=== PATIENT | female | born 1930 | race Caucasian/White ===

== ENCOUNTER 2016-11-23 16:01 | Inpatient (IN) | payer OTHER ==
[~2016-11-23] VITALS: Ht 160 cm; Wt 60.1 kg
[~2016-11-23 16:01] MED LIST: ALBUAER19 INH; ASPI81TA28 PO; ATV/1 PO; CITA10TA4 PO; LOSA1TAB38 PO; METO100T14 PO; ONDA4TAB4 PO; POTA20TA16 PO; PRLSR20 PO
[2016-11-23] MEDS ORDERED: SODIUM CHLORIDE 0.9% 1000ML 1,000 ML IV STA (16:19)
--- NOTE | 2016-11-23 16:24 | EMERGENCY ROOM VISIT NOTE ---
History Report prepared by Neva: Ivet Cespedes Under the Supervision of: Dr. Mynor Clinton M.D. First contact with patient: 16:13 Chief Complaint: ALTERED MENTAL STATUS Stated Complaint: TEST History of Present Illness The patient is an 86 year old female who presents to the Emergency Room with worsening altered mental status staring 0300 today. The patient was sent to the ED from her PCP's office. Her daughter's note that the patient has been having auditory and visual hallucinations. She has been seeing relatives and speaking with them. She is also hearing voices. The patient denies any abdominal pain or pain elsewhere. She is on baby aspirin. The history is limited due to the patient's AMS. Source of History: patient, family History Limited By: AMS Onset: 299 Position: other (global) Quality: other (altered mental status) Timing: worsening Associated Symptoms: No abdominal pain Note: Pt has auditory and visual hallucinations. Review of Systems See HPI for pertinent positives & negatives. A total of 10 systems reviewed and were otherwise negative. Past Medical & Surgical Medical Problems: (1) Atrial fibrillation with RVR (2) Heart disease (3) Hypertension (4) Hypertensive urgency (5) Metabolic encephalopathy (6) Psychosis (7) UTI (urinary tract infection) Surgical Problems: (1) H/O bilateral oophorectomy (2) H/O: hysterectomy Family History FHx: heart disease FHx: lung disease Hypertension Social History Smoking Status: Never Smoker Alcohol Use: none Marital Status: Housing Status: lives with family Occupation Status: retired Current/Historical Medications Scheduled Aspirin (Aspirin Ec), 81 MG PO DAILY Cholecalciferol (Vitamin D3), 1,000 INTER.UNIT PO DAILY Citalopram Hydrobromide (Citalopram Hydrobromide), 10 MG PO DAILY Cyanocobalamin (Vitamin B-12), 1,000 MCG PO DAILY Levothyroxine Sodium (Synthroid), 50 MCG PO DAILY Losartan Potassium (Cozaar), 50 MG PO DAILY Metoprolol Tartrate (Lopressor) (Lopressor), 50 MG PO BID Omeprazole (Prilosec), 20 MG PO DAILY Polyethylene Glycol 3350 (Miralax), 17 GM PO DAILY Risperidone (Risperdal), 0.25 MG PO DIRECTED Scheduled PRN Albuterol Inhaler (Ventolin Inhaler), 2 PUFFS INH QID PRN for SOB/Wheezing Lorazepam (Ativan), 1 MG PO TID PRN for Anxiety Allergies Coded Allergies: Sulfamethoxazole w/Trimethoprim (Unverified Allergy, Mild, HIVES, 11/23/16) Hydrochlorothiazide (Unverified Allergy, Unknown, UNKNOWN, 11/23/16) Lisinopril (Verified Allergy, Unknown, UNKNOWN RXN, 11/23/16) Verapamil (Verified Allergy, Unknown, UNKNOWN RXN, 11/23/16) Physical Exam Vital Signs Date Time Temp Pulse Resp B/P (MAP) Pulse Ox O2 Delivery O2 Flow Rate FiO2 11/23/16 17:34 62 171/92 73 173/98 80 174/95 11/23/16 17:05 95 Room Air 11/23/16 16:57 72 11/23/16 16:50 95 Room Air 11/23/16 16:08 36.5 81 20 157/77 96 Room Air Physical Exam GENERAL: Patient is a healthy-appearing well-nourished female HEAD: Normocephalic atraumatic EYES: Ocular movements intact pupils equal and react to light OROPHARYNX mucous membranes are moist no exudates present no erythema or edema present NECK: Supple no nuchal rigidity CHEST: Good equal expansion LUNGS: Clear and equal to auscultation CARDIAC: Normal S1 and S2 ABDOMEN: Soft nontender no guarding BACK: No CVA tenderness EXTREMITIES: No pain upon palpation normal muscle strength in all groups no clubbing cyanosis or edema NEURO: Patient is inappropriate to questions. Oriented to the date, but does not know the day of the week. Cranial Nerves 2-12 grossly intact Medical Decision & Procedures ER Provider Diagnostic Interpretation: X-ray results as stated below per interpretation by me and the radiologist. Radiology results as stated below per my review and radiologist interpretation: CHEST ONE VIEW PORTABLE CLINICAL HISTORY: Preoperative chest. Weakness. COMPARISON STUDY: 03/05/2015 FINDINGS: The heart remains enlarged. There is aortic tortuosity/ectasia. There is a left subclavian dual-chamber central venous pacemaker. There is no failure. There is no focal pulmonary consolidation.[ No pleural effusions are visualized. IMPRESSION: Persistent cardiomegaly and aortic tortuosity/ectasia. No acute findings. Electronically signed by: Naldo Carter M.D. 11/23/2016 4:48 PM Dictated Date/Time: 11/23/2016 4:[address] HEAD WITHOUT CONTRAST (CT) CLINICAL HISTORY: Acute change in mental status COMPARISON STUDY: 08/21/2015 TECHNIQUE: Axial CT of the brain is performed from the vertex to the skull base. IV contrast was not administered for this examination. A dose lowering technique was utilized adhering to the principles of ALARA. CT DOSE: 638.56 mGycm FINDINGS: No intra or extra-axial mass lesions are visualized. There is no CT evidence of acute cortical infarction. There is no evidence of midline shift. There is no acute hemorrhage. No calvarial fractures are visualized. There are moderate white matter hypodensities likely on a small vessel basis. 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 There is no evidence of acute sinusitis IMPRESSION: No acute intracranial findings Electronically signed by: Naldo Carter M.D. 11/23/2016 5:22 PM Dictated Date/Time: 11/23/2016 5:20 PM Laboratory Results 11/23/16 16:57 Red Blood Count 3.89, Mean Corpuscular Volume 96.7, Mean Corpuscular Hemoglobin 33.2, Mean Corpuscular Hemoglobin Concent 34.3, Mean Platelet Volume 10.4, Neutrophils (%) (Auto) 46.3, Lymphocytes (%) (Auto) 39.2, Monocytes (%) (Auto) 11.9, Eosinophils (%) (Auto) 1.1, Basophils (%) (Auto) 1.3, Neutrophils # (Auto ) 2.83, Lymphocytes # (Auto) 2.40, Monocytes # (Auto) 0.73, Eosinophils # (Auto ) 0.07, Basophils # (Auto) 0.08 11/23/16 16:57 Test 11/23/16 16:56 11/23/16 16:57 Bedside Glucose 86 mg/dl (70-90) White Blood Count 6.12 K/uL (4.8-10.8) Red Blood Count 3.89 M/uL (4.2-5.4) Hemoglobin 12.9 g/dL (12.0-16.0) Hematocrit 37.6 % (37-47) Mean Corpuscular Volume 96.7 fL (80-100) Mean Corpuscular Hemoglobin 33.2 pg (25-34) Mean Corpuscular Hemoglobin Concent 34.3 g/dl (32-36) Platelet Count 163 K/uL (130-400) Mean Platelet Volume 10.4 fL (7.4-10.4) Neutrophils (%) (Auto) 46.3 % Lymphocytes (%) (Auto) 39.2 % Monocytes (%) (Auto) 11.9 % Eosinophils (%) (Auto) 1.1 % Basophils (%) (Auto) 1.3 % Neutrophils # (Auto) 2.83 K/uL (1.4-6.5) Lymphocytes # (Auto) 2.40 K/uL (1.2-3.4) Monocytes # (Auto) 0.73 K/uL (0.11-0.59) Eosinophils # (Auto) 0.07 K/uL (0-0.5) Basophils # (Auto) 0.08 K/uL (0-0.2) RDW Standard Deviation 46.2 fL (36.4-46.3) RDW Coefficient of Variation 13.2 % (11.5-14.5) Immature Granulocyte % (Auto) 0.2 % Immature Granulocyte # (Auto) 0.01 K/uL (0.00-0.02) Urine Color YELLOW Urine Appearance CLEAR (CLEAR) Urine pH 5.5 (4.5-7.5) Urine Specific [place] 1.021 (1.000-1.030) Urine Protein NEG (NEG) Urine Glucose (UA) NEG (NEG) Urine Ketones NEG (NEG) Urine Occult Blood NEG (NEG) Urine Nitrite NEG (NEG) Urine Bilirubin NEG (NEG) Urine Urobilinogen NEG (NEG) Urine Leukocyte Esterase MODERATE (NEG) Urine WBC (Auto) 10-30 /hpf (0-5) Urine RBC (Auto) 0-4 /hpf (0-4) Urine Hyaline Casts (Auto) 1-5 /lpf (0-5) Urine Epithelial Cells (Auto) >30 /lpf (0-5) Urine Bacteria (Auto) NEG (NEG) Anion Gap 9.0 mmol/L (3-11) Est Creatinine Clear Calc Drug Dose 27.3 ml/min Estimated GFR () 47.1 Estimated GFR (Non- 40.6 BUN/Creatinine Ratio 19.2 (10-20) Calcium Level 9.3 mg/dl (8.5-10.1) Total Bilirubin 0.5 mg/dl (0.2-1) Direct Bilirubin mg/dl (0-0.2) Aspartate Amino Transf (AST/SGOT) 32 U/L (15-37) Alanine Aminotransferase (ALT/SGPT) 19 U/L (12-78) Alkaline Phosphatase 57 U/L (45-117) Total Creatine Kinase 193 U/L (26-192) Creatine Kinase MB 2.9 ng/ml (0.5-3.6) Creatine Kinase MB Ratio 1.5 (0-3.0) Troponin I < 0.015 ng/ml (0-0.045) Total Protein 7.9 gm/dl (6.4-8.2) Albumin 4.2 gm/dl (3.4-5.0) Thyroid Stimulating Hormone (TSH) 1.080 uIu/ml (0.300-4.500) Chemistry Specimen Hemolysis Labs reviewed by ED physician. Medications Administered Medications (Trade) Dose Ordered Sig/Kevin Route Start Time Stop Time Status Last Admin Dose Admin Sodium Chloride 1,000 ml @ 999 mls/hr Q1H1M STAT IV 11/23/16 16:19 11/23/16 17:19 DC 11/23/16 17:34 999 MLS/HR Ceftriaxone Sodium (Rocephin Inj) 1 gm NOW STAT IV 11/23/16 17:46 11/23/16 17:47 DC 11/23/16 19:03 1 GM ECG Indication: altered mental status Rate (beats per minute): 67 Rhythm: other (paced) Findings: no acute ischemic change, no ectopy ED Course 1615: Past medical records reviewed. The patient was evaluated in room A4B. A complete history and physical examination was performed. 1619: NSS 1000 ml @ 999 mls/hr IV. 1746: Rocephin Inj 1 gm IV. 1800: Upon reexamination the patient is stable. I discussed results and treatment plan with the patient's family. They verbalize agreement and understanding. The patient will be evaluated for further management. 1805: I discussed the patient's case with Dr. Goldstein, [facility] hospitalist, he has agreed to evaluate the patient for further management and care. Medical Decision Differential diagnosis: Etiologies such as metabolic, infection, hypo/hyperglycemia, electrolyte abnormalities, cardiac sources, intracerebral event, toxicologic, neurologic, as well as others were entertained. This is an 86-year-old female who presents to the emergency department complaining of altered mental status. The patient is seeing objects at home as well as people that are not there. Upon arrival to emergency department the patient appears confused and does not over she has no other day. An IV was established the patient was given Rocephin for urinary tract infection as well as normal saline bolus. She has a normal CAT scan of the head as well as chest x-ray. I did discuss the case with the hospitalist service who agreed to admit the patient. Patient was in agreement with treatment plan. Medication Reconcilliation Current Medication List: was personally reviewed by me Blood Pressure Screening Patient's blood pressure: Elevated blood pressure Blood pressure disposition: Referred to PCP Consults Time Called: 1801 Consulting Physician: Dr. Goldstein [facility] hospitalist Returned Call: [phone] I discussed the patient's case with him. He has agreed to evaluate the patient for further management and care. Impression Primary Impression: Altered mental status Additional Impression: Urinary tract infection Scribe Attestation The scribe's documentation has been prepared under my direction and personally reviewed by me in its entirety. I confirm that the note above accurately reflects all work, treatment, procedures, and medical decision making performed by me. Departure Information Dispostion Being Evaluated By Hospitalist Referrals Devante Gant D.O. (PCP) Patient Instructions My [facility] Problem Qualifiers Primary Impression: Altered mental status Altered mental status type: unspecified Qualified Codes: R41.82 - Altered mental status, unspecified Additional Impression: Urinary tract infection Urinary tract infection type: acute cystitis Hematuria presence: without hematuria Qualified Codes: N30.00 - Acute cystitis without hematuria
--- NOTE | 2016-11-23 16:50 | DIAGNOSTIC IMAGING REPORT ---
CHEST ONE VIEW PORTABLE CLINICAL HISTORY: Preoperative chest. Weakness. COMPARISON STUDY: 03/05/2015 FINDINGS: The heart remains enlarged. There is aortic tortuosity/ectasia. There is a left subclavian dual-chamber central venous pacemaker. There is no failure. There is no focal pulmonary consolidation.[ No pleural effusions are visualized. IMPRESSION: Persistent cardiomegaly and aortic tortuosity/ectasia. No acute findings. Electronically signed by: Naldo Carter M.D. 11/23/2016 4:48 PM Dictated Date/Time: 11/23/2016 4:48 PM
[2016-11-23 17:18] LABS: URINE APPEARANCE CLEAR (CLEAR); URINE BILIRUBIN NEG (NEG); URINE COLOR YELLOW; URINE EPITHELIAL CELL AUTO >30 /lpf (0-5); URINE NITRITE NEG (NEG); URINE PH 5.5 (4.5-7.5); URINE SPECIFIC GRAVITY 1.021 (1.000-1.030); UROBILINOGEN NEG (NEG)
--- NOTE | 2016-11-23 17:23 | DIAGNOSTIC IMAGING REPORT ---
CT HEAD WITHOUT CONTRAST (CT) CLINICAL HISTORY: Acute change in mental status COMPARISON STUDY: 08/21/2015 TECHNIQUE: Axial CT of the brain is performed from the vertex to the skull base. IV contrast was not administered for this examination. A dose lowering technique was utilized adhering to the principles of ALARA. CT DOSE: 638.56 mGycm FINDINGS: No intra or extra-axial mass lesions are visualized. There is no CT evidence of acute cortical infarction. There is no evidence of midline shift. There is no acute hemorrhage. No calvarial fractures are visualized. There are moderate white matter hypodensities likely on a small vessel basis. 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 There is no evidence of acute sinusitis IMPRESSION: No acute intracranial findings Electronically signed by: Naldo Carter M.D. 11/23/2016 5:22 PM Dictated Date/Time: 11/23/2016 5:20 PM
[2016-11-23 17:26] LABS: BASO % 1.3 %; BASO ABS # 0.08 K/uL (0-0.2); COMPLETE YES; EOS % 1.1 %; HEMATOCRIT 37.6 % (37-47); IG% 0.2 %; LYMPH % 39.2 %; MEAN CELL VOLUME 96.7 fL (80-100); MEAN CORPUSCULAR HEMOGLOBIN 33.2 pg (25-34); MEAN CORPUSCULAR HGB CONC 34.3 g/dl (32-36); MEAN PLATELET VOLUME 10.4 fL (7.4-10.4); MONO % 11.9 %; NEUT % 46.3 %; PLATELET COUNT 163 K/uL (130-400); RED BLOOD COUNT 3.89 M/uL (4.2-5.4); WHITE BLOOD COUNT 6.12 K/uL (4.8-10.8)
[2016-11-23 17:41] LABS: MANUAL MICROSCOPIC REQUIRED? NO; REVIEW REQ? NO
[2016-11-23] MEDS ORDERED: CEFTRIAXONE SOD INJ 1 GM ADDVIAL IV STA (17:46)
[2016-11-23 18:00] LABS: ALKALINE PHOSPHATASE 57 U/L (45-117); ALT/SGPT 19 U/L (12-78); AST/SGOT 32 U/L (15-37); BLOOD UREA NITROGEN 23 mg/dl (7-18); BUN/CREATININE RATIO 19.2 (10-20); CALCIUM 9.3 mg/dl (8.5-10.1); CARBON DIOXIDE 26 mmol/L (21-32); CHLORIDE 102 mmol/L (98-107); CKMB/CK RATIO 1.5 (0-3.0); GLUCOSE 89 mg/dl (70-99); POTASSIUM 3.7 mmol/L (3.5-5.1); SODIUM 137 mmol/L (136-145)
[2016-11-23] MEDS ORDERED: ACETAMINOPHEN 325 MG TAB PO PRN (18:45)
[2016-11-23] MEDS ORDERED: ONDANSETRON INJ 2 MG/ML 2 ML VIAL IV PRN (18:45)
[2016-11-23] MEDS ORDERED: ALBUTEROL HFA 8 GM INHALER INH PRN (18:45)
[2016-11-23] MEDS ORDERED: SYN50 PO (19:11)
[2016-11-23] MEDS ORDERED: CYAN10005 PO (19:11)
[2016-11-23] MEDS ORDERED: CHOL1000 PO (19:11)
[2016-11-23] MEDS ORDERED: POLY335019 PO (19:11)
[2016-11-23] MEDS ORDERED: RISP0.258 PO (19:11)
[2016-11-23 20:32] VITALS: BP_SYST 204; BP_SYST 226; BP_DIAS 108; BP_DIAS 116; PULSE 90; TEMP 36.4; O2SAT 90
[2016-11-23 20:33] VITALS: BP 204/108; PULSE 90; TEMP 36.4; Ht 160 cm; Wt 60.1 kg
--- NOTE | 2016-11-23 20:38 | HISTORY & PHYSICAL EXAMINATION ---
DATE OF ADMISSION: 11/23/2016 PRIMARY CARE PHYSICIAN: Dr. Gant. CHIEF COMPLAINT: Acute confusion with hallucinations since this morning. HISTORY OF PRESENT COMPLAINT: The history was taken from the patient's daughter. The patient is very hard of hearing. The patient woke up early in the morning around quarter to 3 with acute hallucinations. She was hearing strange voices and also she was seeing the people that she has not seen before. The condition continued throughout the whole day and at the end of the day, the daughter brought the patient to the Emergency Room for further evaluation. She has not had these kind of symptoms before. She has not had any new medications for her medical condition and she denies to any recent fever or any chills, or rigors, recent injury. She did not have any numbness or tingling, any problem with speech and vision or any weakness involving any side of the body associated with these symptoms. In the Emergency Room, she was noted to have a very high blood pressure with a systolic blood pressure 174 and diastolic 98. She was afebrile. Her blood counts were fairly unremarkable except the urine examination was suggestive of infection. From that point, she was advised admission to the medical floor. PAST MEDICAL HISTORY: Significant for atrial fibrillation status post cardiac pacemaker, chronic kidney disease stage III, allergic rhinitis, hypertension, hyperlipidemia, history of tachybrady syndrome, anxiety, and hypothyroidism. PAST SURGICAL HISTORY: Significant for chest tube insertion in the past and pacemaker placement, total abdominal hysterectomy with oophorectomy. FAMILY HISTORY: Significant for father had unknown type of cancer. SOCIAL HISTORY: She is a . She lives with her daughter. She does not smoke and she does not drink and she has been reasonably ambulant. ALLERGIES: SHE IS ALLERGIC TO LISINOPRIL, SULFAMETHOXAZOLE AND VERAPAMIL. REVIEW OF SYSTEMS: Other systemic review unremarkable, except for those mentioned in history of present complaint. PHYSICAL EXAMINATION: GENERAL: On examination in the Emergency Room, she was not having any acute distress. VITAL SIGNS: Temperature 36.5, pulse of 62, blood pressure 171/92 and there is no postural drop and saturation 95% on room air. HEENT: Unremarkable. NECK: Supple. No JVD, no bruit. CHEST: Clear to auscultate bilaterally. HEART: S1, S2, irregular with a 2/6 systolic murmur over precordium. ABDOMEN: Soft, benign, nontender, no organomegaly. Bowel sounds present. EXTREMITIES: Negative for any edema. MUSCULOSKELETAL: Did not show any acute arthritis involving any joint. CENTRAL NERVOUS SYSTEM: She was alert, awake, oriented x3. She was very deaf. She did not have any focal sensory and/or motor deficits on examination. LABORATORY DATA: Noted today, white count was 6.12, H&H 12.9/37.6, platelet was 163. Sodium 137, potassium 3.7, chloride 102, carbon dioxide 26, BUN 23, creatinine 1.20. LFTs unremarkable. Total CK was 193, MB 2.9. Troponin less than 0.015. TSH was 1.08. UA examination showed clear, moderate leuk esterase, white count was 10-13, bacteria was negative. IMAGING DATA: CT of the head did not show any acute events and chest x-ray, persistent cardiomegaly and aortic tortuosity. EKG was in atrial fibrillation with occasional paced rhythm, rate of 67 per minute, otherwise nonspecific. IMPRESSION AND PLAN: 1. Metabolic encephalopathy. The causes could be a urinary tract infection or any viral illness. No offending medications identified. She was started with intravenous ceftriaxone. Blood and urine culture was sent and she will be admitted to medical floor. 2. Acute psychosis. She has a history of anxiety and she has been taking lorazepam occasionally, but no other antianxiety medications as per the record, she will be evaluated by psychiatrist while in the hospital and again, she has been on Celexa 30 mg daily for her anxiety and/or depression. 3. Hypertension. Seems to be a blood pressure on the upper side. We will give clonidine p.r.n. to decrease the blood pressure. We will continue her usual medications for the blood pressure as well. 4. Atrial fibrillation status post cardiac pacemaker secondary to tachybrady syndrome. She has not been on any anticoagulation. We will continue with her aspirin and other medications for the atrial fibrillation. 5. Anxiety/depression as mentioned earlier, continue with current medications and a psychiatric evaluation while in the hospital for ongoing hallucinations. 6. Gastrointestinal prophylaxis with omeprazole. 8. Deep venous thrombosis prophylaxis with subcutaneous heparin. 9. Code status. She will be a full code. In my clinical judgment, the beneficiary meets criteria as per CMS for 2 midnight stay in the hospital. WILLIAM
[2016-11-23] MEDS: D5W AND 1/2NSS + 20MEQ KCL 1,000 ML IV SCH (20:46)
[2016-11-23] MEDS: POTASSIUM CHLORIDE 20 MEQ TABCR PO SCH (20:46)
[2016-11-23] MEDS: CLONIDINE HCL 0.1 MG TAB PO PRN (20:47)
[2016-11-23 21:15] LABS: PROTHROMBIN TIME (PATIENT) 11.1 SECONDS (9.0-12.0)
[2016-11-23 21:56] VITALS: BP 196/95; PULSE 65
[2016-11-23] MEDS: HEPARIN SOD 5000 UNIT/0.5 ML CARP SQ SCH (21:57)
[2016-11-23] MEDS ORDERED: METOPROLOL TARTRATE 100 MG TAB PO ONE (22:02)
[2016-11-23] MEDS ORDERED: HALOPERIDOL LACTATE 5 MG/ML 1 ML VIAL IM PRN (22:15)
[2016-11-23 23:00] VITALS: BP 202/102; PULSE 68; TEMP 36; O2SAT 96
[2016-11-23 23:30] VITALS: BP 192/82
[2016-11-24] MEDS ORDERED: LOSARTAN POTASSIUM 50 MG TAB PO ONE (00:13)
[2016-11-24 01:30] VITALS: BP 200/108; PULSE 84; O2SAT 96
[2016-11-24 03:10] VITALS: BP 186/93
[2016-11-24] MEDS: D5W AND 1/2NSS + 20MEQ KCL 1,000 ML IV SCH ×2 (05:14→15:23)
[2016-11-24] MEDS: HEPARIN SOD 5000 UNIT/0.5 ML CARP SQ SCH ×4 (05:14→21:08)
[2016-11-24 06:59] LABS: HEMATOCRIT 40.3 % (37-47); MEAN CELL VOLUME 97.3 fL (80-100); MEAN CORPUSCULAR HEMOGLOBIN 32.6 pg (25-34); MEAN CORPUSCULAR HGB CONC 33.5 g/dl (32-36); MEAN PLATELET VOLUME 10.1 fL (7.4-10.4); PLATELET COUNT 163 K/uL (130-400); RED BLOOD COUNT 4.14 M/uL (4.2-5.4); WHITE BLOOD COUNT 5.95 K/uL (4.8-10.8)
[2016-11-24 07:20] LABS: BUN/CREATININE RATIO 14.2 (10-20); CREATININE 0.85 mg/dl (0.60-1.20)
[2016-11-24 07:34] VITALS: BP 132/91; PULSE 133; TEMP 36.8; O2SAT 92
[2016-11-24] MEDS: HALOPERIDOL 1 MG TAB PO PRN ×2 (08:39→15:24)
[2016-11-24] MEDS: PANTOprazole SOD 40 MG TAB PO SCH (08:39)
[2016-11-24] MEDS: METOPROLOL TARTRATE 50 MG TAB PO SCH (08:40)
[2016-11-24] MEDS: POTASSIUM CHLORIDE 20 MEQ TABCR PO SCH ×2 (08:40→21:08)
[2016-11-24] MEDS: ASPIRIN 81 MG ECTAB PO SCH (08:40)
[2016-11-24] MEDS: CITALOPRAM 20 MG TAB PO SCH (08:40)
[2016-11-24] MEDS ORDERED: LOSARTAN POTASSIUM 50 MG TAB PO SCH (09:00)
[2016-11-24] MEDS ORDERED: METOPROLOL TARTRATE 100 MG TAB PO SCH (09:00)
[2016-11-24] MEDS ORDERED: POTASSIUM CHLORIDE 10 MEQ TABCR PO ONE (13:00)
--- NOTE | 2016-11-24 13:42 | Psychiatric Consultation ---
Consultation Date of Consultation Nov 24, 2016. Identifying Data 86-year-old woman who currently lives independently, presented to the emergency room with her daughter due to acute onset visual and auditory hallucinations. Information is gathered from the patient, and the electronic medical record and considered to be reliable. Chief Complaint "OK". History of Present Illness The patient is an 86-year-old woman who apparently still lives alone in her own home where she has lived for all of her life. There is a second home attached to it where her daughter and daughter's live who look in on her regularly. Apparently according to recently obtained outpatient records, the patient had seen Dr. Brito at [facility] in [place] in April because of hallucinations. According to the outpatient records, she said it could be going on for 2 years. She believes that there were people living upstairs, specifically boys around 18 years old, 5 brothers. She also reported to The doctor that she had seen a baby. She reported that they are fixing the place and building an seo coordinator also bringing in girls. She says that they are in and out of the house bothering her constantly. The granddaughter confirmed that there are no steps even going to the second floor. The records also reveal the patient had a head injury in 2014 after a fall, was in the hospital for a month and then in a nursing facility for several weeks. At that appointment, the patient was started on Risperdal 0.25 mg. She was diagnosed with organic hallucinations, nonalcoholic. She return to their clinic on September 17, brought in by her daughter Yasmin. Yasmin reported that the patient was doing better, sleeping all night, no side effects, but she continued to have delusions about the people living upstairs without any insight. It is also noted in that documentation that she has dementia. The patient is also noted to take Ativan 1 mg 3 times a day from her PCP. At that visit, the daughter had requested an increase to the Risperdal which Dr. Brito declined to do in deference to her age. She was suggested to come back for follow-up in a few months but has not. At the time I see the patient, she is seated in the bedside chair with her lunch in front of her uneaten. She is extremely hard of hearing. At time she is able to read my lips and occasionally she hears me if I yell directly into her ear. Visitors were there at the time I entered the room and said that her hearing aid battery was and that her daughter Fuentes bringing in a new one. Her combination of verbal questioning and writing, the patient says that her mood has been "terrible". She admits that she feels "mixed up" and talks vaguely about having brought shame on the family even though she knows she didn' t do anything. In trying to clarify that, she has a lot of guilty themes, saying she was the only one of her sisters didn't go on for further education and feels that she should've done better for her own children. She says that she still leads an active life, living alone, doing her own cooking. She notes that she can been, made jam and froze corn this summer. She denies that she is having any suicidal ideation. She also notes that she is not hearing things that other people do not and denies that she sees things that others do not but during the conversation, she made a comment about someone needing to take care of the babies. She was hearing babies crying and when I told her that I did not , she said I should go out into the hallway which I did and when I told her I heard no babies she was able to say "then it must be me". Past Psychiatric History Current OP Treatment: psychiatrist Prior OP Treatment: no prior treatment Prior Psych Hospitalizations: none Access to a Gun: No Suicide Attempts: No Past Medical/Surgical History (1) Atrial fibrillation, rapid (2) Hypertension (3) Atrial fibrillation with RVR Allergies Allergies: Coded Allergies: Sulfamethoxazole w/Trimethoprim (Unverified Allergy, Mild, HIVES, 11/23/16) Hydrochlorothiazide (Unverified Allergy, Unknown, UNKNOWN, 11/23/16) Lisinopril (Verified Allergy, Unknown, UNKNOWN RXN, 11/23/16) Verapamil (Verified Allergy, Unknown, UNKNOWN RXN, 11/23/16) Home Medications Scheduled Aspirin (Aspirin Ec), 81 MG PO DAILY Cholecalciferol (Vitamin D3), 1,000 INTER.UNIT PO DAILY Citalopram Hydrobromide (Citalopram Hydrobromide), 10 MG PO DAILY Cyanocobalamin (Vitamin B-12), 1,000 MCG PO DAILY Levothyroxine Sodium (Synthroid), 50 MCG PO DAILY Losartan Potassium (Cozaar), 50 MG PO DAILY Metoprolol Tartrate (Lopressor) (Lopressor), 50 MG PO BID Omeprazole (Prilosec), 20 MG PO DAILY Polyethylene Glycol 3350 (Miralax), 17 GM PO DAILY Risperidone (Risperdal), 0.25 MG PO DIRECTED Scheduled PRN Albuterol Inhaler (Ventolin Inhaler), 2 PUFFS INH QID PRN for SOB/Wheezing Lorazepam (Ativan), 1 MG PO TID PRN for Anxiety Family History FHx: heart disease FHx: lung disease Hypertension History of Suicide: No History of Substance Abuse: No Psychiatric History: No Alcohol Use Alcohol Use In Past 12 Months: No Smoking Use Smoking Status: Never Smoker Personal History Education: started high school (dropped out of 11th grade) Relationship History: Children: multiple daughters Legal History: none Psychological Trauma History: Denies Hx Traumatic Event Review of Systems Constitutional: denies no symptoms reported, denies see HPI, denies chills, denies diaphoresis, denies fever, denies malaise, denies weakness, denies other Eyes: denies: no symptoms, as stated in HPI, eye pain, tearing, itching, redness, discharge, double vision, visual changes, blurred vision, photophobia, other ENT: denies: no symptoms reported, see HPI, ear pain, ear discharge, loss of hearing, tinnitus, nasal pain, nasal congestion, rhinorrhea, epistaxis, sore throat, stidor, throat swelling, mouth pain, mouth swelling, dental pain, gum swelling, other Cardiovascular: denies: no symptoms reported, see HPI, chest pain, chest tightness, chest pressure, diaphoresis, palpitations, syncope, other Respiratory: denies: no symptoms reported, see HPI, cough, orthopnea, short of breath, stridor, wheezing, sputum production, cyanosis, SANTILLAN, PND, other Gastrointestinal: denies no symptoms reported, denies see HPI, denies abdominal pain, denies constipation, denies diarrhea, denies nausea, denies vomiting, denies other Genitourinary - Female: denies: no symptoms, see HPI, rash, amenorrhea, dysmenorrhea, menorrhagia, metrorrhagia, , vaginal bleeding, vaginal itching, vaginal discharge, vulvadynia, other Musculoskeletal: denies no symptoms reported, denies see HPI, denies back pain , denies gout, denies joint pain, denies joint swelling, denies muscle pain, denies muscle stiffness, denies neck pain, denies other Integumentary: denies no symptoms reported, denies see HPI, denies change in color, denies change in hair/nails, denies dryness, denies lesions, denies lumps , denies rash, denies other Neurologic: denies: no symptoms, see HPI, headache, numbness, paresthesias, pre -existing deficit, seizure, tingling, tremors, general weakness, tics, focal weakness, vertigo, lethargy, memory loss, dizziness, other Endocrine: denies: no symptoms, as stated in HPI, cold intolerance, heat intolerance, hair changes, goiter, polydipsia, polyuria, skin changes, other Hematologic / Lymphatic: denies: no symptoms, as stated in HPI, abnormal clotting, adenopathy, anemia, easy bleeding, easy bruising, gums bleeding, petechiae, other Examination Physical Examination As per Dr. Goldstein Vital Signs Vital Signs Past 12 Hours Date Time Temp Pulse Resp B/P (MAP) Pulse Ox O2 Delivery O2 Flow Rate FiO2 11/24/16 08:00 Room Air 11/24/16 07:34 36.8 133 19 132/91 (105) 92 Room Air 11/24/16 03:10 186/93 (124) 11/24/16 01:30 84 18 200/108 (138) 96 Room Air Laboratory Results Last 24 Hours Test 11/23/16 16:56 11/23/16 16:57 11/23/16 20:28 11/24/16 06:45 Bedside Glucose 86 mg/dl White Blood Count 6.12 K/uL 5.95 K/uL Red Blood Count 3.89 M/uL 4.14 M/uL Hemoglobin 12.9 g/dL 13.5 g/dL Hematocrit 37.6 % 40.3 % Mean Corpuscular Volume 96.7 fL 97.3 fL Mean Corpuscular Hemoglobin 33.2 pg 32.6 pg Mean Corpuscular Hemoglobin Concent 34.3 g/dl 33.5 g/dl Platelet Count 163 K/uL 163 K/uL Mean Platelet Volume 10.4 fL 10.1 fL Neutrophils (%) (Auto) 46.3 % Lymphocytes (%) (Auto) 39.2 % Monocytes (%) (Auto) 11.9 % Eosinophils (%) (Auto) 1.1 % Basophils (%) (Auto) 1.3 % Neutrophils # (Auto) 2.83 K/uL Lymphocytes # (Auto) 2.40 K/uL Monocytes # (Auto) 0.73 K/uL Eosinophils # (Auto) 0.07 K/uL Basophils # (Auto) 0.08 K/uL RDW Standard Deviation 46.2 fL 46.6 fL RDW Coefficient of Variation 13.2 % 13.0 % Immature Granulocyte % (Auto) 0.2 % Immature Granulocyte # (Auto) 0.01 K/uL Urine Color YELLOW Urine Appearance CLEAR Urine pH 5.5 Urine Specific [place] 1.021 Urine Protein NEG Urine Glucose (UA) NEG Urine Ketones NEG Urine Occult Blood NEG Urine Nitrite NEG Urine Bilirubin NEG Urine Urobilinogen NEG Urine Leukocyte Esterase MODERATE Urine WBC (Auto) 10-30 /hpf Urine RBC (Auto) 0-4 /hpf Urine Hyaline Casts (Auto) 1-5 /lpf Urine Epithelial Cells (Auto) >30 /lpf Urine Bacteria (Auto) NEG Sodium Level 137 mmol/L 135 mmol/L Potassium Level 3.7 mmol/L 3.0 mmol/L Chloride Level 102 mmol/L 99 mmol/L Carbon Dioxide Level 26 mmol/L 26 mmol/L Anion Gap 9.0 mmol/L 10.0 mmol/L Blood Urea Nitrogen 23 mg/dl 12 mg/dl Creatinine 1.20 mg/dl 0.85 mg/dl Est Creatinine Clear Calc Drug Dose 27.3 ml/min 38.6 ml/min Estimated GFR () 47.1 71.4 Estimated GFR (Non- 40.6 61.6 BUN/Creatinine Ratio 19.2 14.2 Random Glucose 89 mg/dl 139 mg/dl Calcium Level 9.3 mg/dl 9.0 mg/dl Total Bilirubin 0.5 mg/dl Direct Bilirubin mg/dl Aspartate Amino Transf (AST/SGOT) 32 U/L Alanine Aminotransferase (ALT/SGPT) 19 U/L Alkaline Phosphatase 57 U/L Total Creatine Kinase 193 U/L Creatine Kinase MB 2.9 ng/ml Creatine Kinase MB Ratio 1.5 Troponin I < 0.015 ng/ml Total Protein 7.9 gm/dl Albumin 4.2 gm/dl Thyroid Stimulating Hormone (TSH) 1.080 uIu/ml Chemistry Specimen Hemolysis Prothrombin Time 11.1 SECONDS Prothromb Time International Ratio 1.0 Activated Partial Thromboplast Time 26.2 SECONDS Partial Thromboplastin Ratio 1.0 Vitamin B12 Level 1177 pg/mL Folate 22.59 ng/mL Mental Examination During interview pt is: alert and oriented, cooperative Appearance: appropriately groomed Eye contact is: good Motor behavior is: no abnormal motor movements Speech: normal in rate, rhythm & volume Affect: anxious Mood is: anxious Thought process: goal directed Thought content: delusions, other Suicidal thought are: denied (hallucinations) Homicidal thoughts are: present Hallucinations: auditory (hearing babies), visual (reports from her daughter that she was seeing family members) Cognition: attention grossly intact, language grossly intact Intelligence estimated to be: average Insight: poor Judgement: poor Impression / Recommendations Impression 86-year-old woman with remarkably few medical concerns, admitted with hallucinations. She has been seeing Dr. Lara at [facility] and has been on Risperdal 0.25 mg. She declined to increase this in deference to her age although I do believe that she could likely tolerate an increase to at least 0.5 mg which I will take the liberty of doing to target her hallucinations. I will have the liaison nurse return to get a mini Genet a pH Q9 for baseline. She was diagnosed with organic hallucinations by her outpatient psychiatrist although it's unclear to me whether she believes that the hallucinations are a function of dementia were another condition. She can obviously have transient psychosis in the context of dementia. Her urine did not reveal bacteria but has been sent for culture. If this returns infected, her hallucinations could certainly be seen in the context of a urinary tract infection. We have not been able to speak directly with Yasmin to get supplemental information and I will last liaison nurse to continue to call her cell phone to obtain this. Her QTC was 479 on EKG in the emergency room and for going to increase her antipsychotics, this should certainly be monitored. The outpatient records indicates she had been taking Ativan 1 mg 3 times a day and that her daughter had reported that without that she was extremely anxious. I see here in the hospital we have not ordered her any Ativan and although I agree with avoiding benzodiazepines and woman of 86 years old, I am concerned for the potential for withdrawal seizures. We should clarify whether or not she has actually been taking 3 mg 3 times a day and if so perhaps taper a little more slowly. We will continue to follow with you to engage her response to her medication adjustments. Recommendations (1) Organic hallucinosis syn See discussion above11/24 - Has been reviewed with Dr. Noemi Ghosh
[2016-11-24 16:00] VITALS: BP 149/79; PULSE 80; TEMP 36.9; O2SAT 95
--- NOTE | 2016-11-24 17:58 | Progress Note ---
Internal Med Progress Note Date of Service: Nov 24, 2016. Provider Documentation: SUBJECTIVE: The patient was seen and examined Very Deaf Remains satble OBJECTIVE: Vital Signs-as noted below Exam: General-No distress at rest Eyes-normal ENT-normal Neck-supple Lungs-clear to auscultate bilaterally Heart-Regular,no murmur Abdomen-Benign,no masses ,bowel sound present Extremities-NO edema Neuro-AA Very Deaf Pleasantly confused Lab data as noted below. ASSESSMENT & PLAN: Metabolic encephalopathy. The causes could be a urinary tract infection or any viral illness. No offending medications identified. Has been on IV Ceftriaxone Urine and Blood cultures-pending Acute psychosis. She has a history of anxiety and she has been taking lorazepam occasionally, And Celexa 30 mg Daily Appreciate Psychiatry evaluation Hypertension. Seems to be a blood pressure on the upper side. 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 She has not been on any anticoagulation. We will continue with her aspirin and other medications for the atrial fibrillation. Anxiety/depression Will taper down Ativan Appreciate Psychiatry evaluation Gastrointestinal prophylaxis with omeprazole. Deep venous thrombosis prophylaxis with subcutaneous heparin. Code status. She will be a full code. DISPOSITION Awaited Vital Signs: Date Time Temp Pulse Resp B/P (MAP) Pulse Ox O2 Delivery O2 Flow Rate FiO2 11/24/16 16:00 36.9 80 18 149/79 (102) 95 Room Air 11/24/16 16:00 Room Air 11/24/16 08:00 Room Air 11/24/16 07:34 36.8 133 19 132/91 (105) 92 Room Air 11/24/16 03:10 186/93 (124) 11/24/16 01:30 84 18 200/108 (138) 96 Room Air 11/23/16 23:30 192/82 (118) 11/23/16 23:25 Room Air 11/23/16 23:00 36.0 68 18 202/102 (135) 96 Room Air 11/23/16 21:56 65 196/95 (128) 11/23/16 20:33 36.4 90 20 204/108 Room Air 11/23/16 20:32 36.4 90 20 226/116 (152) 90 204/108 (140) 11/23/16 19:42 86 18 198/111 95 Room Air Lab Results: Results Past 24 Hours Test 11/23/16 20:28 11/24/16 06:45 Range/Units Prothrombin Time 11.1 9.0-12.0 SECONDS Prothromb Time International Ratio 1.0 0.9-1.1 Activated Partial Thromboplast Time 26.2 21.0-31.0 SECONDS Partial Thromboplastin Ratio 1.0 White Blood Count 5.95 4.8-10.8 K/uL Red Blood Count 4.14 4.2-5.4 M/uL Hemoglobin 13.5 12.0-16.0 g/dL Hematocrit 40.3 37-47 % Mean Corpuscular Volume 97.3 80-100 fL Mean Corpuscular Hemoglobin 32.6 25-34 pg Mean Corpuscular Hemoglobin Concent 33.5 32-36 g/dl RDW Standard Deviation 46.6 36.4-46.3 fL RDW Coefficient of Variation 13.0 11.5-14.5 % Platelet Count 163 130-400 K/uL Mean Platelet Volume 10.1 7.4-10.4 fL Sodium Level 135 136-145 mmol/L Potassium Level 3.0 3.5-5.1 mmol/L Chloride Level 99 98-107 mmol/L Carbon Dioxide Level 26 21-32 mmol/L Anion Gap 10.0 3-11 mmol/L Blood Urea Nitrogen 12 7-18 mg/dl Creatinine 0.85 0.60-1.20 mg/dl Est Creatinine Clear Calc Drug Dose 38.6 ml/min Estimated GFR () 71.4 Estimated GFR (Non- 61.6 BUN/Creatinine Ratio 14.2 10-20 Random Glucose 139 70-99 mg/dl Calcium Level 9.0 8.5-10.1 mg/dl Vitamin B12 Level 1177 211-911 pg/mL Folate 22.59 >5.38 ng/mL Microbiology Results 11/23/16 Blood Culture, Received Pending 11/23/16 Blood Culture, Received Pending 11/24/16 Urine Culture, Received Pending
[2016-11-24] MEDS: CEFTRIAXONE SOD INJ 1,000 MG in DEXTROSE 5% 50ML 50 ML IV SCH (18:40)
[2016-11-24] MEDS: RISPERIDONE 0.5 MG TAB PO SCH (21:08)
[2016-11-25] MEDS: HALOPERIDOL 1 MG TAB PO PRN (02:25)
[2016-11-25] MEDS: HEPARIN SOD 5000 UNIT/0.5 ML CARP SQ SCH ×3 (04:58→20:37)
[2016-11-25 07:06] VITALS: BP 155/92; PULSE 80; TEMP 37.4; O2SAT 94
[2016-11-25] MEDS: CITALOPRAM 20 MG TAB PO SCH (07:32)
[2016-11-25] MEDS: PANTOprazole SOD 40 MG TAB PO SCH (07:33)
[2016-11-25] MEDS: LOSARTAN POTASSIUM 50 MG TAB PO SCH (07:33)
[2016-11-25] MEDS: POTASSIUM CHLORIDE 20 MEQ TABCR PO SCH ×2 (07:34→20:37)
[2016-11-25] MEDS: ASPIRIN 81 MG ECTAB PO SCH (07:34)
[2016-11-25] MEDS: METOPROLOL TARTRATE 50 MG TAB PO SCH (07:34)
[2016-11-25] MEDS: LORAZEPAM 0.5 MG TAB PO PRN (08:27)
[2016-11-25 12:00] LABS: BUN/CREATININE RATIO 11.5 (10-20); CALCIUM 9.1 mg/dl (8.5-10.1); CREATININE 0.82 mg/dl (0.60-1.20); POTASSIUM 3.9 mmol/L (3.5-5.1)
[2016-11-25 15:02] VITALS: BP 173/97; PULSE 73; TEMP 36.8; O2SAT 93
[2016-11-25] MEDS: CLONIDINE HCL 0.1 MG TAB PO PRN (15:20)
[2016-11-25] MEDS: CEFTRIAXONE SOD INJ 1,000 MG in DEXTROSE 5% 50ML 50 ML IV SCH (17:11)
--- NOTE | 2016-11-25 20:01 | Progress Note ---
Internal Med Progress Note Date of Service: Nov 25, 2016. Provider Documentation: SUBJECTIVE: very hard of hearing eating lunch seems comfortable can read and answers says her nerve medication taken off and not feeling because of it denies any pain no nausea OBJECTIVE: Vital Signs-as noted below Exam: General-alert and awake. not in distress ENT-very hard of hearing Neck-no neck masses supple Lungs-cta b/l no wheezing or crackles Heart-s1 and s2 heard regular rate and rhythm no murmurs Abdomen-soft bowel sounds present non tender no distension Extremities-no erythema Neuro-alert and awake moves extremities Lab data as noted below. ASSESSMENT & PLAN: Metabolic encephalopathy. from urinary tract infection or any viral illness. on IV Ceftriaxone Urine and Blood cultures-no growth so far seems better today Acute psychosis. She has a history of anxiety and she has been taking lorazepam occasionally, And Celexa 30 mg Daily Appreciate Psychiatry evaluation patient says she wsa cut off her nerve medication will make Ativan scheduled dose at low dose Hypertension. 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 Not on any anticoagulation. on aspirin and metoprolol will monitor Anxiety/depression Will taper down Ativan Appreciate Psychiatry evaluation Gastrointestinal prophylaxis with omeprazole. Deep venous thrombosis prophylaxis with subcutaneous heparin. Code status. full code. DISPOSITION may need placement social service for d/c planning Vital Signs: Date Time Temp Pulse Resp B/P (MAP) Pulse Ox O2 Delivery O2 Flow Rate FiO2 11/25/16 16:00 Room Air 11/25/16 15:02 36.8 73 18 173/97 (122) 93 Room Air 11/25/16 08:00 Room Air 11/25/16 07:06 37.4 80 18 155/92 (113) 94 Room Air 11/25/16 00:05 Room Air 11/24/16 20:05 Room Air Lab Results: Results Past 24 Hours Test 11/25/16 11:04 Range/Units Sodium Level 133 136-145 mmol/L Potassium Level 3.9 3.5-5.1 mmol/L Chloride Level 99 98-107 mmol/L Carbon Dioxide Level 24 21-32 mmol/L Anion Gap 10.0 3-11 mmol/L Blood Urea Nitrogen 9 7-18 mg/dl Creatinine 0.82 0.60-1.20 mg/dl Est Creatinine Clear Calc Drug Dose 40.0 ml/min Estimated GFR () 74.6 Estimated GFR (Non- 64.3 BUN/Creatinine Ratio 11.5 10-20 Random Glucose 94 70-99 mg/dl Calcium Level 9.1 8.5-10.1 mg/dl
[2016-11-25] MEDS: RISPERIDONE 0.5 MG TAB PO SCH (20:36)
[2016-11-25] MEDS: LORAZEPAM 1 MG TAB PO SCH (20:36)
[2016-11-25 23:21] VITALS: BP 150/89; PULSE 69; TEMP 36.5; O2SAT 96
[2016-11-26] MEDS: HEPARIN SOD 5000 UNIT/0.5 ML CARP SQ SCH ×3 (05:30→20:31)
[2016-11-26] MEDS: LORAZEPAM 1 MG TAB PO SCH (07:43)
[2016-11-26] MEDS: PANTOprazole SOD 40 MG TAB PO SCH (07:43)
[2016-11-26] MEDS: ASPIRIN 81 MG ECTAB PO SCH (07:44)
[2016-11-26] MEDS: CITALOPRAM 20 MG TAB PO SCH (07:44)
[2016-11-26] MEDS: LOSARTAN POTASSIUM 50 MG TAB PO SCH (07:44)
[2016-11-26] MEDS: METOPROLOL TARTRATE 50 MG TAB PO SCH (07:45)
[2016-11-26] MEDS: POTASSIUM CHLORIDE 20 MEQ TABCR PO SCH ×2 (07:46→20:29)
[2016-11-26 07:56] VITALS: BP 142/88; PULSE 72; TEMP 36.9; O2SAT 94
[2016-11-26 10:10] VITALS: O2SAT 94
--- NOTE | 2016-11-26 12:12 | Psychiatric Progress Notes ---
Psychiatric Progress Note Date of Service Nov 26, 2016. Notes ID: Patient reviewed with liaison nurse. Initial consult completed by ALLISON Franz on 11/24/16. hx of organic heredia following head injury with outpatient rx of Risperdal. CC: "someone took care of those babies" HPI: patient states that she saw the baby here last night with some other kids, heard it pound on the crib but isn't distressed by it at this time and seems confused as to time line of symptoms. She reported that her daughter will be visiting her and knew who brought her her hamm. She is very hard of hearing so may also be contributing factor. ROS: without physical complaints at this time, denies anxiety/depression MSE: alert, calm, cooperative, pleasant affect, thoughts concrete and somewhat perseverative, denies SI/HI/heredia currently and did not appear to be responding to internal stimuli. Imp: hx of heredia, no prior diagnosis of dementia Plan: tolerating increase in Risperdal agree that would continue Ativan taper as could be contributing to mild delirium and patient is of course a fall risk given age I do not see an EEG on file here, cannot exclude partial seizure disorder/ temporal lobe. Will defer to primary team.
[2016-11-26 14:59] VITALS: BP 147/80; PULSE 76; TEMP 36.5; O2SAT 94
--- NOTE | 2016-11-26 15:37 | Progress Note ---
Internal Med Progress Note Date of Service: Nov 26, 2016. Provider Documentation: SUBJECTIVE: very hard of hearing resting comfortably daughters in room afebrile as per daughter patient is much better still sees things want to go home OBJECTIVE: Vital Signs-as noted below Exam: General-alert and awake. not in distress ENT-very hard of hearing Neck-no neck masses supple Lungs-cta b/l no wheezing or crackles Heart-s1 and s2 heard regular rate and rhythm no murmurs Abdomen-soft bowel sounds present non tender no distension Extremities-no erythema no edema Neuro-alert and awake moves extremities Lab data as noted below. ASSESSMENT & PLAN: Metabolic encephalopathy. from urinary tract infection or any viral illness. on IV Ceftriaxone Urine and Blood cultures-no growth so far improving continue same Acute psychosis. She has a history of anxiety and she has been taking lorazepam occasionally, And Celexa 30 mg Daily Appreciate Psychiatry evaluation patient says she wsa cut off her nerve medication will make Ativan scheduled dose at low dose needs followup Hypertension. 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 Not on any anticoagulation. on aspirin and metoprolol will monitor Anxiety/depression Will taper down Ativan Appreciate Psychiatry evaluation Gastrointestinal prophylaxis with omeprazole. Deep venous thrombosis prophylaxis with subcutaneous heparin. Code status. full code. DISPOSITION pt/ot possible d/c in am social service for d/c planning Vital Signs: Date Time Temp Pulse Resp B/P (MAP) Pulse Ox O2 Delivery O2 Flow Rate FiO2 11/26/16 14:59 36.5 76 18 147/80 (102) 94 Room Air 11/26/16 10:10 94 Room Air 11/26/16 07:56 36.9 72 20 142/88 (106) 94 Room Air 11/26/16 07:33 Room Air 11/26/16 00:00 Room Air 11/25/16 23:21 36.5 69 16 150/89 (109) 96 Room Air 11/25/16 19:30 Room Air 11/25/16 16:00 Room Air
[2016-11-26] MEDS: CEFTRIAXONE SOD INJ 1,000 MG in DEXTROSE 5% 50ML 50 ML IV SCH (18:41)
[2016-11-26] MEDS: HALOPERIDOL 1 MG TAB PO PRN (18:41)
[2016-11-26] MEDS: LORAZEPAM 0.5 MG TAB PO PRN (20:28)
[2016-11-26] MEDS: RISPERIDONE 0.5 MG TAB PO SCH (20:29)
[2016-11-26] MEDS ORDERED: LORAZEPAM 1 MG TAB PO SCH (21:00)
[2016-11-26 23:32] VITALS: BP 155/79; PULSE 66; TEMP 36.9; O2SAT 96
[2016-11-27] MEDS: HEPARIN SOD 5000 UNIT/0.5 ML CARP SQ SCH ×3 (06:36→20:05)
[2016-11-27 06:55] VITALS: BP 178/90; PULSE 76; TEMP 37.6; O2SAT 93
[2016-11-27] MEDS: ASPIRIN 81 MG ECTAB PO SCH (07:34)
[2016-11-27] MEDS: CITALOPRAM 20 MG TAB PO SCH (07:35)
[2016-11-27] MEDS: LOSARTAN POTASSIUM 50 MG TAB PO SCH (07:35)
[2016-11-27] MEDS: PANTOprazole SOD 40 MG TAB PO SCH (07:35)
[2016-11-27] MEDS: POTASSIUM CHLORIDE 20 MEQ TABCR PO SCH ×2 (07:36→20:03)
[2016-11-27] MEDS: METOPROLOL TARTRATE 50 MG TAB PO SCH (07:36)
[2016-11-27 07:45] LABS: BASO % 0.5 %; BASO ABS # 0.03 K/uL (0-0.2); EOS % 0.9 %; HEMATOCRIT 37.5 % (37-47); IG% 0.4 %; LYMPH % 35.7 %; LYMPH ABS # 2.03 K/uL (1.2-3.4); MEAN CELL VOLUME 95.4 fL (80-100); MEAN CORPUSCULAR HEMOGLOBIN 33.1 pg (25-34); MEAN CORPUSCULAR HGB CONC 34.7 g/dl (32-36); MEAN PLATELET VOLUME 10.2 fL (7.4-10.4); MONO % 9.8 %; NEUT % 52.7 %; PLATELET COUNT 154 K/uL (130-400); RED BLOOD COUNT 3.93 M/uL (4.2-5.4); WHITE BLOOD COUNT 5.69 K/uL (4.8-10.8)
[2016-11-27 08:07] LABS: COMPLETE YES
[2016-11-27 08:14] LABS: BUN/CREATININE RATIO 16.5 (10-20); CALCIUM 9.3 mg/dl (8.5-10.1); MAGNESIUM 2.2 mg/dl (1.8-2.4); POTASSIUM 3.9 mmol/L (3.5-5.1)
[2016-11-27 08:17] LABS: ALB/GLOB RATIO 1.1 (0.9-2)
[2016-11-27] MEDS: LORAZEPAM 0.5 MG TAB PO PRN (11:17)
[2016-11-27 11:18] VITALS: BP 148/88; TEMP 36.6
[2016-11-27 15:09] VITALS: BP 159/98; PULSE 80; TEMP 37; O2SAT 91
[2016-11-27] MEDS: CEFTRIAXONE SOD INJ 1,000 MG in DEXTROSE 5% 50ML 50 ML IV SCH (18:03)
--- NOTE | 2016-11-27 18:10 | Progress Note ---
Internal Med Progress Note Date of Service: Nov 27, 2016. Provider Documentation: SUBJECTIVE: very hard of hearing resting comfortably daughter in room eating ok denies any pain but has some nausea want to go home OBJECTIVE: Vital Signs-as noted below Exam: General-alert and awake. not in distress ENT-very hard of hearing Neck-no neck masses supple Lungs-cta b/l no wheezing or crackles Heart-s1 and s2 heard regular rate and rhythm no murmurs Abdomen-soft bowel sounds present non tender no distension Extremities-no erythema no edema Neuro-alert and awake moves extremities Lab data as noted below. ASSESSMENT & PLAN: Metabolic encephalopathy. from urinary tract infection or any viral illness. on IV Ceftriaxone #4 Urine and Blood cultures-no growth so far improving continue same Acute psychosis. She has a history of anxiety and she has been taking lorazepam occasionally, And Celexa 30 mg Daily Appreciate Psychiatry evaluation patient says she wsa cut off her nerve medication will make Ativan scheduled dose at low dose stable Psychiatry recommended eeg to rule out partial seizures-await results needs followup Hypertension. 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 Not on any anticoagulation. on aspirin and metoprolol will monitor Anxiety/depression Will taper down Ativan Appreciate Psychiatry evaluation Gastrointestinal prophylaxis with omeprazole. Deep venous thrombosis prophylaxis with subcutaneous heparin. Code status. full code. DISPOSITION pt/ot possible d/c in 1-2 days social service for d/c planning Vital Signs: Date Time Temp Pulse Resp B/P (MAP) Pulse Ox O2 Delivery O2 Flow Rate FiO2 11/27/16 15:49 Room Air 11/27/16 15:09 37.0 80 18 159/98 (118) 91 Room Air 11/27/16 11:18 36.6 148/88 (108) 11/27/16 08:28 Room Air 11/27/16 06:55 37.6 76 18 178/90 (119) 93 Room Air 11/27/16 00:00 Room Air 11/26/16 23:32 36.9 66 16 155/79 (104) 96 Room Air Lab Results: Results Past 24 Hours Test 11/27/16 07:35 Range/Units White Blood Count 5.69 4.8-10.8 K/uL Red Blood Count 3.93 4.2-5.4 M/uL Hemoglobin 13.0 12.0-16.0 g/dL Hematocrit 37.5 37-47 % Mean Corpuscular Volume 95.4 80-100 fL Mean Corpuscular Hemoglobin 33.1 25-34 pg Mean Corpuscular Hemoglobin Concent 34.7 32-36 g/dl Platelet Count 154 130-400 K/uL Mean Platelet Volume 10.2 7.4-10.4 fL Neutrophils (%) (Auto) 52.7 % Lymphocytes (%) (Auto) 35.7 % Monocytes (%) (Auto) 9.8 % Eosinophils (%) (Auto) 0.9 % Basophils (%) (Auto) 0.5 % Neutrophils # (Auto) 3.00 1.4-6.5 K/uL Lymphocytes # (Auto) 2.03 1.2-3.4 K/uL Monocytes # (Auto) 0.56 0.11-0.59 K/uL Eosinophils # (Auto) 0.05 0-0.5 K/uL Basophils # (Auto) 0.03 0-0.2 K/uL RDW Standard Deviation 45.4 36.4-46.3 fL RDW Coefficient of Variation 12.9 11.5-14.5 % Immature Granulocyte % (Auto) 0.4 % Immature Granulocyte # (Auto) 0.02 0.00-0.02 K/uL Red Blood Cell Morphology Unremarkable Sodium Level 135 136-145 mmol/L Potassium Level 3.9 3.5-5.1 mmol/L Chloride Level 102 98-107 mmol/L Carbon Dioxide Level 27 21-32 mmol/L Anion Gap 6.0 3-11 mmol/L Blood Urea Nitrogen 17 7-18 mg/dl Creatinine 1.00 0.60-1.20 mg/dl Est Creatinine Clear Calc Drug Dose 32.8 ml/min Estimated GFR () 58.7 Estimated GFR (Non- 50.6 BUN/Creatinine Ratio 16.5 10-20 Random Glucose 92 70-99 mg/dl Calcium Level 9.3 8.5-10.1 mg/dl Magnesium Level 2.2 1.8-2.4 mg/dl Total Bilirubin 0.8 0.2-1 mg/dl Aspartate Amino Transf (AST/SGOT) 32 15-37 U/L Alanine Aminotransferase (ALT/SGPT) 20 12-78 U/L Alkaline Phosphatase 54 45-117 U/L Total Protein 7.4 6.4-8.2 gm/dl Albumin 3.9 3.4-5.0 gm/dl Globulin 3.5 2.5-4.0 gm/dl Albumin/Globulin Ratio 1.1 0.9-2
[2016-11-27] MEDS: RISPERIDONE 0.5 MG TAB PO SCH (20:04)
[2016-11-27] MEDS: HALOPERIDOL 1 MG TAB PO PRN (22:20)
[2016-11-27 23:55] VITALS: BP 166/83; PULSE 64; TEMP 37.1; O2SAT 94
[2016-11-28] VITALS: O2SAT 94
[2016-11-28] MEDS: HEPARIN SOD 5000 UNIT/0.5 ML CARP SQ SCH ×3 (06:20→20:40)
[2016-11-28 07:27] VITALS: BP 152/82; PULSE 70; TEMP 36.7; O2SAT 92
[2016-11-28] MEDS: METOPROLOL TARTRATE 50 MG TAB PO SCH ×2 (08:03→20:37)
[2016-11-28] MEDS: POTASSIUM CHLORIDE 20 MEQ TABCR PO SCH ×2 (08:03→20:36)
[2016-11-28] MEDS: PANTOprazole SOD 40 MG TAB PO SCH (08:03)
[2016-11-28] MEDS: LOSARTAN POTASSIUM 50 MG TAB PO SCH (08:04)
[2016-11-28] MEDS: ASPIRIN 81 MG ECTAB PO SCH (08:04)
[2016-11-28] MEDS: CITALOPRAM 20 MG TAB PO SCH (08:04)
[2016-11-28] MEDS: LORAZEPAM 0.5 MG TAB PO PRN (08:09)
[2016-11-28] MEDS: HALOPERIDOL 1 MG TAB PO PRN ×2 (10:34→16:22)
[2016-11-28] MEDS ORDERED: POLYETHYLENE (MIRALAX) 17 GM PACK PO PRN (14:45)
[2016-11-28 14:59] VITALS: BP 125/66; PULSE 61; TEMP 36.7; O2SAT 95
--- NOTE | 2016-11-28 17:54 | Progress Note ---
Internal Med Progress Note Date of Service: Nov 28, 2016. Provider Documentation: SUBJECTIVE: very hard of hearing was confused and hallucinating in the morning but was doing ok later in the day family in room eating fine denies any complaints OBJECTIVE: Vital Signs-as noted below Exam: General-alert and awake. not in distress ENT-very hard of hearing Neck-no neck masses supple Lungs-cta b/l no wheezing or crackles Heart-s1 and s2 heard regular rate and rhythm no murmurs Abdomen-soft bowel sounds present non tender no distension Extremities-no erythema no edema Neuro-alert and awake moves extremities Lab data as noted below. ASSESSMENT & PLAN: Metabolic encephalopathy. from urinary tract infection or any viral illness. on IV Ceftriaxone #4 and stopped. will star on cefuroxime to complete 7 day course Urine and Blood cultures-no growth so far stable Acute psychosis. She has a history of anxiety and she has been taking lorazepam occasionally, And Celexa 30 mg Daily Appreciate Psychiatry evaluation patient says she wsa cut off her nerve medication will make Ativan scheduled dose at low dose Haldol prn Psychiatry recommended eeg to rule out partial seizures-await results needs followup Hypertension. 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 Not on any anticoagulation. on aspirin and metoprolol will monitor Anxiety/depression Will taper down Ativan Appreciate Psychiatry evaluation Gastrointestinal prophylaxis with omeprazole. Deep venous thrombosis prophylaxis with subcutaneous heparin. Code status. full code. DISPOSITION pt/ot possible d/c in 1-2 days social service for d/c planning Vital Signs: Date Time Temp Pulse Resp B/P (MAP) Pulse Ox O2 Delivery O2 Flow Rate FiO2 11/28/16 15:58 Room Air 11/28/16 14:59 36.7 61 16 125/66 (85) 95 Room Air 11/28/16 08:00 Room Air 11/28/16 07:27 36.7 70 18 152/82 (105) 92 Room Air 11/28/16 00:00 94 Room Air 11/27/16 23:55 37.1 64 18 166/83 (110) 94 Room Air 64
[2016-11-28] MEDS: CEFUROXIME AXETIL 250 MG TAB PO SCH (20:36)
[2016-11-28] MEDS: RISPERIDONE 0.5 MG TAB PO SCH (20:37)
[2016-11-28 20:45] VITALS: BP 172/93; PULSE 63
[2016-11-29] VITALS: BP 134/84; PULSE 61; TEMP 37.1; O2SAT 93; O2SAT 94
[2016-11-29] MEDS: HEPARIN SOD 5000 UNIT/0.5 ML CARP SQ SCH ×2 (06:00→14:18)
[2016-11-29 07:48] VITALS: BP 137/74; PULSE 60; TEMP 36.8; O2SAT 95
[2016-11-29] MEDS: CEFUROXIME AXETIL 250 MG TAB PO SCH (08:17)
[2016-11-29] MEDS: CITALOPRAM 20 MG TAB PO SCH (08:18)
[2016-11-29] MEDS: METOPROLOL TARTRATE 50 MG TAB PO SCH (08:19)
[2016-11-29] MEDS: POTASSIUM CHLORIDE 20 MEQ TABCR PO SCH (08:19)
[2016-11-29] MEDS: LOSARTAN POTASSIUM 50 MG TAB PO SCH (08:19)
[2016-11-29] MEDS: ASPIRIN 81 MG ECTAB PO SCH (08:19)
[2016-11-29] MEDS: PANTOprazole SOD 40 MG TAB PO SCH (08:20)
[2016-11-29] MEDS: LORAZEPAM 0.5 MG TAB PO PRN (08:26)
[2016-11-29 10:43] VITALS: O2SAT 95
[2016-11-29 14:50] VITALS: BP 134/83; PULSE 59; TEMP 36.8; O2SAT 94
[2016-11-29] MEDS ORDERED: METO50TA16 PO (16:25)
[2016-11-29] MEDS ORDERED: CFT250 PO (16:25)
[2016-11-29] MEDS ORDERED: RISP-99 PO (16:25)
[2016-11-29] MEDS ORDERED: LOSA100T65 PO (16:25)
--- NOTE | 2016-11-29 16:27 | Discharge Instructions ---
Discharge Instructions Date of Service Nov 29, 2016. Admission Reason for Admission: Hypertensive Urgency, Metabolic Encephalopathy Discharge Discharge Diagnosis / Problem: hypertensive urgency, encephalopathy, uti? Discharge Goals Goal(s): Decrease discomfort, Improve function Activity Recommendations Activity Limitations: resume your previous activity . Instructions / Follow-Up Instructions / Follow-Up FOLLOWUP WITH FAMILY DOCTOR ON November AT 10:45AM FOLLOWUP WITH PSYCHIATRY IN 1-2 WEEKS Current Hospital Diet Patient's current hospital diet: AHA Diet (Heart Healthy) Discharge Diet Recommended Diet: AHA Diet (Heart Healthy) Pending Studies Studies pending at discharge: no Medical Emergencies . Who to Call and When: Medical Emergencies: If at any time you feel your situation is an emergency, please call 911 immediately. . Non-Emergent Contact Non-Emergency issues call your: Primary Care Provider . . "Provider Documentation" section prepared by Tripp Marvin. . VTE Core Measure Inpt VTE Proph given/why not?: Unfractionated heparin SQ
[2016-11-29 16:50] VITALS: BP 134/83; PULSE 59; TEMP 36.8; O2SAT 94
--- NOTE | 2016-11-29 19:09 | Progress Note ---
Internal Med Progress Note Date of Service: Nov 29, 2016. Provider Documentation: SUBJECTIVE: very hard of hearing family in room eating fine no pain no nausea family to take home OBJECTIVE: Vital Signs-as noted below Exam: General-alert and awake. not in distress ENT-very hard of hearing Neck-no neck masses supple Lungs-cta b/l no wheezing or crackles Heart-s1 and s2 heard regular rate and rhythm no murmurs Abdomen-soft bowel sounds present non tender no distension Extremities-no erythema no edema Neuro-alert and awake moves extremities Lab data as noted below. ASSESSMENT & PLAN: Metabolic encephalopathy. from urinary tract infection or any viral illness. on IV Ceftriaxone #4 and stopped. will star on cefuroxime to complete 7 day course Urine and Blood cultures-no growth so far stable Acute psychosis. She has a history of anxiety and she has been taking lorazepam occasionally, And Celexa 30 mg Daily Appreciate Psychiatry evaluation patient says she wsa cut off her nerve medication will make Ativan scheduled dose at low dose Haldol prn Psychiatry recommended eeg to rule out partial seizures- normal study needs followup with psychiatry Hypertension. 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 Not on any anticoagulation. on aspirin and metoprolol will monitor Anxiety/depression Will taper down Ativan Appreciate Psychiatry evaluation f/u with psychiatry Gastrointestinal prophylaxis with omeprazole. Discharged home with home health Vital Signs: Date Time Temp Pulse Resp B/P (MAP) Pulse Ox O2 Delivery O2 Flow Rate FiO2 11/29/16 16:50 36.8 59 18 94 Room Air 11/29/16 16:00 Room Air 11/29/16 14:50 36.8 59 18 134/83 (100) 94 11/29/16 10:43 95 Room Air 11/29/16 08:00 Room Air 11/29/16 07:48 36.8 60 20 137/74 (95) 95 11/29/16 00:00 37.1 61 20 134/84 (101) 93 Room Air 11/29/16 00:00 94 Room Air 11/28/16 20:45 63 172/93 (119)
--- NOTE | 2016-11-29 19:27 | Discharge Summary ---
Discharge Summary Date of Service Nov 29, 2016. Discharge Summary Admission Date: Nov 23, 2016 at 18:35 Discharge Date: Nov 29, 2016 Discharge Disposition: Home with services Principal Diagnosis: ENCEPHALOPATHY UTI HYPERTENSIVE URGENCY Secondary Diagnoses/Problems: atrial fibrillation status post cardiac pacemaker, chronic kidney disease stage III, allergic rhinitis, hypertension, hyperlipidemia, history of tachybrady syndrome, anxiety, and hypothyroidism. Procedures: CT HEAD: No acute intracranial findings CXR: Persistent cardiomegaly and aortic tortuosity/ectasia. No acute findings. Consultations: PSYCHIATRY Medication Reconciliation New Medications: Losartan Potassium (Cozaar) 100 Mg Tab 100 MG PO DAILY for 30 Days, #30 TAB 2 Refills Cefuroxime Axetil (Cefuroxime Axetil) 250 Mg Tab 250 MG PO BID, #3 TAB Metoprolol Tartrate (Lopressor) (Lopressor) 50 Mg Tab 50 MG PO BID, #60 TAB 2 Refills Risperidone (Risperidone) 0.5 Mg Tab 0.5 MG PO HS, #30 TAB 2 Refills Continued Medications: Albuterol Inhaler (Ventolin Inhaler) Aers 2 PUFFS INH QID PRN for SOB/Wheezing, #5 INHALER Aspirin (Aspirin Ec) 81 Mg Tab 81 MG PO DAILY Cholecalciferol (Vitamin D3) 1,000 Unit Tab 1000 INTER.UNIT PO DAILY, TAB 3 Refills Citalopram Hydrobromide (Citalopram Hydrobromide) 10 Mg Tab 10 MG PO DAILY, #30 Cyanocobalamin (Vitamin B-12) 1,000 Mcg Tab 1000 MCG PO DAILY, TAB Levothyroxine Sodium (Synthroid) 50 Mcg Tab 50 MCG PO DAILY Lorazepam (Ativan) 1 Mg Tab 1 MG PO TID PRN for Anxiety, TAB Omeprazole (Prilosec) 20 Mg Capcr 20 MG PO DAILY, CAP Polyethylene Glycol 3350 (Miralax) 1 Pow Pow 17 GM PO DAILY, #255 GM Discontinued Medications: Losartan Potassium (Cozaar) 100 Mg Tab 50 MG PO DAILY, TAB Metoprolol Tartrate (Lopressor) (Lopressor) 100 Mg Tab 50 MG PO BID, #64 Risperidone (Risperdal) 0.25 Mg Tab 0.25 MG PO DIRECTED, TAB Admission Information HPI (per Admitting provider): : The history was taken from the patient's daughter. The patient is very hard of hearing. The patient woke up early in the morning around quarter to 3 with acute hallucinations. She was hearing strange voices and also she was seeing the people that she has not seen before. The condition continued throughout the whole day and at the end of the day, the daughter brought the patient to the Emergency Room for further evaluation. She has not had these kind of symptoms before. She has not had any new medications for her medical condition and she denies to any recent fever or any chills, or rigors, recent injury. She did not have any numbness or tingling, any problem with speech and vision or any weakness involving any side of the body associated with these symptoms. In the Emergency Room, she was noted to have a very high blood pressure with a systolic blood pressure 174 and diastolic 98. She was afebrile. Her blood counts were fairly unremarkable except the urine examination was suggestive of infection. From that point, she was advised admission to the medical floor. Physical Exam (per Admitting): GENERAL: On examination in the Emergency Room, she was not having any acute distress. VITAL SIGNS: Temperature 36.5, pulse of 62, blood pressure 171/92 and there is no postural drop and saturation 95% on room air. HEENT: Unremarkable. NECK: Supple. No JVD, no bruit. CHEST: Clear to auscultate bilaterally. HEART: S1, S2, irregular with a 2/6 systolic murmur over precordium. ABDOMEN: Soft, benign, nontender, no organomegaly. Bowel sounds present. EXTREMITIES: Negative for any edema. MUSCULOSKELETAL: Did not show any acute arthritis involving any joint. CENTRAL NERVOUS SYSTEM: She was alert, awake, oriented x3. She was very deaf. She did not have any focal sensory and/or motor deficits on examination. Hospital Course Metabolic encephalopathy. from urinary tract infection or any viral illness. on IV Ceftriaxone #4 and stopped. will star on cefuroxime to complete 7 day course Urine and Blood cultures-no growth so far stable Acute psychosis. She has a history of anxiety and she has been taking lorazepam occasionally, And Celexa 30 mg Daily Appreciate Psychiatry evaluation patient says she wsa cut off her nerve medication will make Ativan scheduled dose at low dose Haldol prn Psychiatry recommended eeg to rule out partial seizures- normal study needs followup with psychiatry Hypertension. 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 Not on any anticoagulation. on aspirin and metoprolol will monitor Anxiety/depression Will taper down Ativan Appreciate Psychiatry evaluation f/u with psychiatry Gastrointestinal prophylaxis with omeprazole. Discharged home with home health Total time spent on discharge = 35MINUTES This includes examination of the patient, discharge planning, medication reconciliation, and communication with other providers. Discharge Instructions Please take this sheet to every appointment for the next month Discharge Instructions Date of Service Nov 29, 2016. Admission Reason for Admission: Hypertensive Urgency, Metabolic Encephalopathy Discharge Discharge Diagnosis / Problem: hypertensive urgency, encephalopathy, uti? Discharge Goals Goal(s): Decrease discomfort, Improve function Activity Recommendations Activity Limitations: resume your previous activity . Instructions / Follow-Up Instructions / Follow-Up FOLLOWUP WITH FAMILY DOCTOR ON November AT 10:45AM FOLLOWUP WITH PSYCHIATRY IN 1-2 WEEKS Current Hospital Diet Patient's current hospital diet: AHA Diet (Heart Healthy) Discharge Diet Recommended Diet: AHA Diet (Heart Healthy) Pending Studies Studies pending at discharge: no Medical Emergencies . Who to Call and When: Medical Emergencies: If at any time you feel your situation is an emergency, please call 911 immediately. . Non-Emergent Contact Non-Emergency issues call your: Primary Care Provider . . "Provider Documentation" section prepared by Tripp Marvin. . VTE Core Measure Inpt VTE Proph given/why not?: Unfractionated heparin SQ
--- NOTE | 2016-11-30 00:12 | ELECTROENCEPHALOGRAPH REPORT ---
REQUESTING: I think Dr. Subramanian probably requested this. CLINICAL DIAGNOSIS: Clinical diagnosis change in mental status of uncertain causation. ELECTROENCEPHALOGRAM DIAGNOSIS: Essentially normal during wakefulness. DESCRIPTION OF TRACING: This EEG was done as a bedside recording. Video analysis of patient movement and behavior was obtained. Photic stimulation and hyperventilation were not performed. Drowsiness and light sleep were not recorded. Under these conditions, there is evidence for a background rhythm in the alpha range of up to 9 Hz of maximum frequency and 30 microvolts of maximum amplitude. This is maximum posterior head regions and bilaterally symmetrical. Theta activity of mid range frequency to upper range frequency of modest voltage is seen over all head regions without clear focal or regional predominance. Anterior head region maximum bilaterally symmetrical low voltage fast activity in the beta range is present. At no time during the waking tracing is there evidence for potentially epileptogenic activity in the form of polyspike or spike wave bursts, focal sharp waves or focal spikes. INTERPRETATION: This electroencephalogram is essentially normal during wakefulness without evidence for focal or generalized encephalopathy and without evidence for potentially epileptogenic activity.
== END 2016-11-29 17:20 | disposition home health service (06) | DRG 689 ==
LOC: C.EDB 16:02 → C.MS2W 18:35 → ENRESERV 18:51
PROVIDERS: ADMIT Internal Medicine; ATTEND Internal Medicine
DX: N39.0 Urinary tract infection, site not specified (principal); G93.41 Metabolic encephalopathy; F06.0 Psychotic disorder with hallucinations due to known physiological condition; I48.91 Unspecified atrial fibrillation; I16.0 Hypertensive urgency; I25.10 Atherosclerotic heart disease of native coronary artery without angina pectoris; I13.10 Hypertensive heart and chronic kidney disease without heart failure, with stage 1 through stage 4 chronic kidney disease, or unspecified chronic kidney disease; Z88.2 Allergy status to sulfonamides; Z95.0 Presence of cardiac pacemaker; N18.3 Chronic kidney disease, stage 3 (moderate); E03.9 Hypothyroidism, unspecified

== ENCOUNTER 2017-03-17 11:44 | Emergency (ER) | payer OTHER ==
[~2017-03-17] VITALS: Ht 160 cm; Wt 62.0 kg
[~2017-03-17 11:44] MED LIST changes: +CFT250 PO; +CHOL1000 PO; +CYAN10005 PO; +LOSA100T65 PO; -LOSA1TAB38 PO; -METO100T14 PO; +METO50TA16 PO; -ONDA4TAB4 PO; +POLY335019 PO; -POTA20TA16 PO; +RISP-99 PO; +SYN50 PO
[2017-03-17 12:06] VITALS: TEMP 37.6; Ht 160 cm; Wt 62.0 kg
--- NOTE | 2017-03-17 13:24 | EMERGENCY ROOM VISIT NOTE ---
History Report prepared by Neva: Lora Patterson Under the Supervision of: Dr. Brenna Patel M.D. First contact with patient: 13:02 Chief Complaint: COUGH Stated Complaint: BAD COUGH, SORE CHEST, WATERY EYES, RUNNY NOSE Nursing Triage Summary: pt coming in for cough, congestion for a week, "her chest sounds real bad" per family. pt denies pain, denies chest pain. body aches History of Present Illness The patient is a 86 year old female who presents to the Emergency Room with complaints of a constant cough beginning 1 week ago. Per family, the patient has also had chest discomfort with the cough. She has no radiation of the pain. There is not an exertional component. The patient also reports having a headache and reports being febrile at night. She denies fever, but states she just "feels awful." Denies vomiting, diarrhea. Source of History: patient, family Onset: 1 week ago Position: other (global) Quality: other (cough) Timing: constant Associated Symptoms: + fevers, + headache Review of Systems See HPI for pertinent positives & negatives. A total of 10 systems reviewed and were otherwise negative. Past Medical & Surgical Medical Problems: (1) Atrial fibrillation with RVR (2) Heart disease (3) Hypertension (4) Hypertensive urgency (5) Metabolic encephalopathy (6) Organic hallucinosis syn (7) Psychosis (8) UTI (urinary tract infection) Surgical Problems: (1) H/O bilateral oophorectomy (2) H/O: hysterectomy Family History FHx: heart disease FHx: lung disease Hypertension Social History Smoking Status: Never Smoker Alcohol Use: none Marital Status: Housing Status: lives with family Occupation Status: retired Current/Historical Medications Scheduled Albuterol Hfa (Ventolin Hfa), 2 PUFFS INH QID Amlodipine Besylate (Norvasc), 1 TAB PO DAILY Aspirin (Aspirin Ec), 81 MG PO DAILY Cholecalciferol (Vitamin D3), 1,000 INTER.UNIT PO DAILY Citalopram Hydrobromide (Citalopram Hydrobromide), 10 MG PO DAILY Cyanocobalamin (Vitamin B-12), 1,000 MCG PO DAILY Gabapentin (Gabapentin), 1 CAP PO BID Levothyroxine Sodium (Levothyroxine Sodium), 1 TAB PO DAILYBB Lorazepam (Lorazepam), 1 TAB PO TID Metoprolol Tartrate (Metoprolol Tartrate), 1 TAB PO BID Omeprazole (Prilosec), 1 CAP PO DAILY Oseltamivir (Tamiflu), 75 MG PO BID Risperidone (Risperidone), 1 TAB PO HS Scheduled PRN Polyethylene Glycol 3350 (Miralax), 17 GM PO DAILY PRN for Constipation Allergies Coded Allergies: Sulfamethoxazole w/Trimethoprim (Unverified Allergy, Mild, HIVES, 03/17/17) Hydrochlorothiazide (Unverified Allergy, Unknown, UNKNOWN, 03/17/17) Lisinopril (Verified Allergy, Unknown, UNKNOWN RXN, 03/17/17) Verapamil (Verified Allergy, Unknown, UNKNOWN RXN, 03/17/17) Physical Exam Vital Signs Date Time Temp Pulse Resp B/P (MAP) Pulse Ox O2 Delivery O2 Flow Rate FiO2 03/17/17 15:27 74 120/71 93 03/17/17 12:06 37.6 103 20 108/66 92 Room Air Physical Exam Vital signs reviewed. General: Elderly female, in no significant distress. HEENT: No scleral icterus, PERRLA, neck supple. Atraumatic. Cardiovascular: Regular rate and rhythm, no extra sounds. Pulmonary: Clear to auscultation bilaterally, normal work of breathing. Dry cough noted. Abdomen: Soft, nontender, nondistended, positive bowel sounds. Musculoskeletal: Atraumatic, no peripheral edema. Neurologic: Patient awake alert and oriented x 3, full strength in all 4 extremities. Cranial nerves 2 through 12 grossly intact. Skin: Warm, dry, no rash Medical Decision & Procedures ER Provider Diagnostic Interpretation: Radiology results as stated below per my review and radiologist interpretation: CHEST ONE VIEW PORTABLE CLINICAL HISTORY: cough, fever, flu sx dyspnea COMPARISON STUDY: 11/23/2016 FINDINGS: Mild stable cardiomegaly. Permanent bipolar cardiac pacemaker. Slight chronic interstitial prominence. No focal infiltrate. IMPRESSION: Chronic change. Mild stable cardiomegaly. No acute process. The above report was generated using voice recognition software. It may contain grammatical, syntax or spelling errors. Electronically signed by: Carlo Whittington M.D. 03/17/2017 1:55 PM Dictated Date/Time: 03/17/2017 1:54 PM Laboratory Results 03/17/17 14:10 Red Blood Count 3.78, Mean Corpuscular Volume 96.8, Mean Corpuscular Hemoglobin 33.3, Mean Corpuscular Hemoglobin Concent 34.4, Mean Platelet Volume 10.5, Neutrophils (%) (Auto) 61.8, Lymphocytes (%) (Auto) 19.9, Monocytes (%) (Auto) 16.5, Eosinophils (%) (Auto) 0.7, Basophils (%) (Auto) 0.8, Neutrophils # (Auto ) 4.69, Lymphocytes # (Auto) 1.51, Monocytes # (Auto) 1.25, Eosinophils # (Auto ) 0.05, Basophils # (Auto) 0.06 03/17/17 14:10 Test 03/17/17 14:05 03/17/17 14:10 Influenza Type A Antigen POS for Influ A (NEG) Influenza Type B Antigen Neg for Influ B (NEG) White Blood Count 7.58 K/uL (4.8-10.8) Red Blood Count 3.78 M/uL (4.2-5.4) Hemoglobin 12.6 g/dL (12.0-16.0) Hematocrit 36.6 % (37-47) Mean Corpuscular Volume 96.8 fL (80-100) Mean Corpuscular Hemoglobin 33.3 pg (25-34) Mean Corpuscular Hemoglobin Concent 34.4 g/dl (32-36) Platelet Count 151 K/uL (130-400) Mean Platelet Volume 10.5 fL (7.4-10.4) Neutrophils (%) (Auto) 61.8 % Lymphocytes (%) (Auto) 19.9 % Monocytes (%) (Auto) 16.5 % Eosinophils (%) (Auto) 0.7 % Basophils (%) (Auto) 0.8 % Neutrophils # (Auto) 4.69 K/uL (1.4-6.5) Lymphocytes # (Auto) 1.51 K/uL (1.2-3.4) Monocytes # (Auto) 1.25 K/uL (0.11-0.59) Eosinophils # (Auto) 0.05 K/uL (0-0.5) Basophils # (Auto) 0.06 K/uL (0-0.2) RDW Standard Deviation 46.1 fL (36.4-46.3) RDW Coefficient of Variation 13.1 % (11.5-14.5) Immature Granulocyte % (Auto) 0.3 % Immature Granulocyte # (Auto) 0.02 K/uL (0.00-0.02) Anion Gap 7.0 mmol/L (3-11) Est Creatinine Clear Calc Drug Dose 27.3 ml/min Estimated GFR () 47.1 Estimated GFR (Non- 40.6 BUN/Creatinine Ratio 10.1 (10-20) Calcium Level 9.1 mg/dl (8.5-10.1) Magnesium Level 1.9 mg/dl (1.8-2.4) Total Bilirubin 0.7 mg/dl (0.2-1) Direct Bilirubin 0.2 mg/dl (0-0.2) Aspartate Amino Transf (AST/SGOT) 23 U/L (15-37) Alanine Aminotransferase (ALT/SGPT) 17 U/L (12-78) Alkaline Phosphatase 66 U/L (45-117) Total Protein 7.8 gm/dl (6.4-8.2) Albumin 3.8 gm/dl (3.4-5.0) Laboratory results per my review. Medications Administered Medications (Trade) Dose Ordered Sig/Kevin Route Start Time Stop Time Status Last Admin Dose Admin Sodium Chloride 250 ml @ 999 mls/hr Q16M STAT IV 03/17/17 13:27 03/17/17 13:42 DC 03/17/17 14:04 999 MLS/HR Acetaminophen (Tylenol Tab) 650 mg NOW STAT PO 03/17/17 13:27 03/17/17 13:29 DC 03/17/17 14:01 650 MG ECG Indication: weakness Rate (beats per minute): 70 Rhythm: other (atrially paced with prolonged AV conduction ) Findings: LAFB, PAC Change: Patient's Electrocardiogram interpreted by me ED Course 1320: Past medical records reviewed. The patient was evaluated in room B12A. A complete history and physical examination was performed. 1327: Ordered Tylenol Tab 650 mg PO, Sodium Chloride 250 ml @ 999 mls/hr IV. 1458: Ordered Tamiflu Cap 75 mg PO. 1515: Ordered Albuterol 2 puffs INH. 1520: Upon reevaluation, the patient appeared to have improvement of her symptoms. I discussed findings with her. She verbalized agreement of the treatment plan. She was discharged home. Medical Decision Differential diagnosis: Etiologies such as viral syndrome, otitis, pharyngitis, pneumonia, influenza, meningitis, urinary tract infection, sepsis, bacteremia, as well as others were entertained. This pt was evaluated and appeared to be in no distress. IV access was obtained and lab work was drawn. Pt was hydrated with NSS. She was given tylenol. Lab work indicates a positive influenza A. VSS, she is maintaining her oxygen sats. CXR is negative for acute process. Pt was d/c on tamiflu 75 mg BID bid for 5 days. Pt and family were advised to seek f/u for reevaluation J CARLOS. She will return to the ED for worsening of symptoms or any medical concerns. Medication Reconcilliation Current Medication List: was personally reviewed by me Blood Pressure Screening Patient's blood pressure: Normal blood pressure Impression Primary Impression: Influenza A Scribe Attestation The scribe's documentation has been prepared under my direction and personally reviewed by me in its entirety. I confirm that the note above accurately reflects all work, treatment, procedures, and medical decision making performed by me. Departure Information Dispostion Home / Self-Care Prescriptions Oseltamivir (Tamiflu) 75 Mg Cap 75 MG PO BID, #10 CAP Prov: Brenna Patel M.D. 03/17/17 Referrals Devante Gant D.OFranco (PCP) Forms HOME CARE DOCUMENTATION FORM, IMPORTANT VISIT INFORMATION Patient Instructions My [facility] Additional Instructions Diagnosis: Influenza A Tylenol 650 mg every 6 hours as needed for pain or fever. Drink plenty of clear fluids. Albuterol 2 puffs every 4 hours as needed for wheezing or cough. Follow-up with your physician this week for reevaluation. Return to the ER for worsening of symptoms or any medical concerns.
[2017-03-17] MEDS ORDERED: SODIUM CHLORIDE 0.9% 250ML 250 ML IV STA (13:27)
[2017-03-17] MEDS ORDERED: ACETAMINOPHEN 325 MG TAB PO STA (13:27)
[2017-03-17] MEDS ORDERED: RISP0.254 PO (13:53)
[2017-03-17] MEDS ORDERED: AMLO2.5T PO (13:53)
[2017-03-17] MEDS ORDERED: VNTHFA/IN INH (13:53)
[2017-03-17] MEDS ORDERED: METO50TA17 PO (13:53)
[2017-03-17] MEDS ORDERED: OMEP20CA9 PO (13:53)
[2017-03-17] MEDS ORDERED: LEVO75TA5 PO (13:53)
[2017-03-17] MEDS ORDERED: ATV1 PO (13:53)
[2017-03-17] MEDS ORDERED: NRN100 PO (13:53)
--- NOTE | 2017-03-17 13:56 | DIAGNOSTIC IMAGING REPORT ---
CHEST ONE VIEW PORTABLE CLINICAL HISTORY: cough, fever, flu sx dyspnea COMPARISON STUDY: 11/23/2016 FINDINGS: Mild stable cardiomegaly. Permanent bipolar cardiac pacemaker. Slight chronic interstitial prominence. No focal infiltrate. IMPRESSION: Chronic change. Mild stable cardiomegaly. No acute process. The above report was generated using voice recognition software. It may contain grammatical, syntax or spelling errors. Electronically signed by: Carlo Whittington M.D. 03/17/2017 1:55 PM Dictated Date/Time: 03/17/2017 1:54 PM
[2017-03-17 14:25] LABS: BASO % 0.8 %; BASO ABS # 0.06 K/uL (0-0.2); EOS % 0.7 %; EOS ABS # 0.05 K/uL (0-0.5); HEMATOCRIT 36.6 % (37-47); HEMOGLOBIN 12.6 g/dL (12.0-16.0); IG# 0.02 K/uL (0.00-0.02); LYMPH % 19.9 %; LYMPH ABS # 1.51 K/uL (1.2-3.4); MEAN CELL VOLUME 96.8 fL (80-100); MEAN CORPUSCULAR HEMOGLOBIN 33.3 pg (25-34); MEAN CORPUSCULAR HGB CONC 34.4 g/dl (32-36); MEAN PLATELET VOLUME 10.5 fL (7.4-10.4); MONO % 16.5 %; MONO ABS # 1.25 K/uL (0.11-0.59); NEUT % 61.8 %; NEUT ABS # 4.69 K/uL (1.4-6.5); PLATELET COUNT 151 K/uL (130-400); RED CELL DISTRIBUTION WIDTH CV 13.1 % (11.5-14.5); RED CELL DISTRIBUTION WIDTH SD 46.1 fL (36.4-46.3); WHITE BLOOD COUNT 7.58 K/uL (4.8-10.8)
[2017-03-17 14:41] LABS: ALBUMIN 3.8 gm/dl (3.4-5.0); CALCIUM 9.1 mg/dl (8.5-10.1); CREATININE 1.2 mg/dl (0.60-1.20); POTASSIUM 3.3 mmol/L (3.5-5.1)
[2017-03-17 14:43] LABS: TOTAL PROTEIN 7.8 gm/dl (6.4-8.2)
[2017-03-17 14:53] LABS: INFLUENZA B ANTIGEN Neg for Influ B (NEG)
[2017-03-17] MEDS ORDERED: OSELTAMIVIR PHOSPHATE 75 MG CAP PO STA (14:58)
[2017-03-17] MEDS ORDERED: OSEL75CA12 PO (15:06)
[2017-03-17] MEDS ORDERED: ALBUTEROL HFA 8 GM INHALER INH ONE (15:15)
[2017-03-17 15:27] VITALS: BP 120/71; PULSE 74; O2SAT 93
== END 2017-03-17 15:31 | disposition home or self-care (01) ==
LOC: C.EDB 11:46
DX: J11.1 Influenza due to unidentified influenza virus with other respiratory manifestations (principal); I48.91 Unspecified atrial fibrillation; I10 Essential (primary) hypertension; Z87.440 Personal history of urinary (tract) infections; Z90.710 Acquired absence of both cervix and uterus; Z90.722 Acquired absence of ovaries, bilateral; Z82.49 Family history of ischemic heart disease and other diseases of the circulatory system; Z79.82 Long term (current) use of aspirin; Z79.899 Other long term (current) drug therapy

== ENCOUNTER 2018-07-16 09:35 | Inpatient (IN) ==
[2018-07-16] MEDS ORDERED: SODIUM CHLORIDE 0.9% 500 ML IV SCH (10:15)
[2018-07-16 10:53] LABS: Basophils # (auto) 0.03 K/uL (0-0.2); Basophils % (auto) 0.3 %; Eosinophils # (auto) 0.04 K/uL (0-0.5); Eosinophils % (auto) 0.4 %; Hematocrit (blood only) 40.5 % (37-47); Hemoglobin 14.2 g/dL (12.0-16.0); Immature Granulocytes # (auto) 0.03 K/uL (0.00-0.02); Immature Granulocytes % (auto) 0.3 %; Mean Corpuscular Hgb Conc 35.1 g/dL (32-36); Mean Corpuscular Volume 93.5 fL (80-100); Monocytes # (auto) 1.03 K/uL (0.11-0.59); Monocytes % (auto) 10.3 %; Neutrophils # (auto) 6.69 K/uL (1.4-6.5); Neutrophils % (auto) 66.7 %; Platelet Count 262 K/uL (130-400); RDW Standard Deviation 44.4 fL (36.4-46.3); Red Blood Count 4.33 M/uL (4.2-5.4); White Blood Count 10.02 K/uL (4.8-10.8)
[2018-07-16 11:02] LABS: Albumin Level 3.6 gm/dl (3.4-5.0); BUN Creatinine Ratio 11.1 (10-20); Calcium 9.7 mg/dl (8.5-10.1); Creatinine Clr Calc Pharmacy 17.1 ml/min; Est GFR (African American) 29.2; Est GFR (Non-African American) 25.2; Potassium 3.9 mmol/L (3.5-5.1)
[2018-07-16 11:05] LABS: Bilirubin,Total 0.6 mg/dl (0.2-1); Globulin 3.7 gm/dl (2.5-4.0); Total Protein 7.3 gm/dl (6.4-8.2)
--- NOTE | 2018-07-16 11:26 | CT Scan Report ---
CT OF THE HEAD WITHOUT CONTRAST CLINICAL HISTORY: Altered mental status. Evaluate for bleed. COMPARISON STUDY: Head CT July 10, 2018 and November 23, 2016. CT DOSE: 537.48 mGy.cm TECHNIQUE: Helical axial images of the head were obtained without IV contrast. Automated exposure con trol was utilized for the study. A dose lowering technique was utilized adhering to the principles o f ALARA. FINDINGS: Minimal hyperdensity within the right occipital lobe on axial image 14 is noted. Ventricular system i s stable. Basilar cisterns are patent. No extraaxial collections are present. There are no findings t o suggest acute dural sinus thrombosis or acute territorial infarct. Extensive white matter hypodensi ties are unchanged. These suggest small vessel disease. There are no significant calvarial abnormalit ies. IMPRESSION: 1. Minimal hyperdensity within or overlying the right occipital lobe without mass effect. This is non specific and may reflect a small contusion or trace subarachnoid hemorrhage. 2. Extensive small vessel disease. Electronically signed by: Trav Sutherland M.D. 07/16/2018 11:24 AM
--- NOTE | 2018-07-16 11:29 | XRay Report ---
XR chest 1V portable CLINICAL HISTORY: Altered mental status. Evaluate for pneumonia. COMPARISON STUDY: Chest radiograph July 10, 2018. FINDINGS: Dual-lead left subclavian pacemaker is unchanged in position. Cardiomediastinal silhouette is stable. No consolidation to suggest pneumonia. Elevation of the left hemidiaphragm is again noted. There is no consolidation. IMPRESSION: No acute cardiopulmonary findings. No change in appearance of the chest. Electronically signed by: Trav Sutehrland M.D. 07/16/2018 11:27 AM
[2018-07-16] MEDS ORDERED: LORazepam 0.5 MG/1 ML VIAL IV SCH (12:45)
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
[2018-07-16 13:32] LABS: Appearance Urine Clear (Clear); Bilirubin Urine Negative (Negative); Color Urine Yellow; Epithelial Cell Urine Auto >30 /lpf (0-5); Glucose Urine UA Negative (Negative); Ketones Urine Trace (Negative); Leukocyte Esterase Urine 2+ (Negative); Nitrite Urine Negative (Negative); Protein Urine Negative (Negative); Specific Gravity Urine 1.016 (1.000-1.030); Urobilinogen Urine Negative (Negative); pH Urine 5.5 (4.5-7.5)
[2018-07-16 13:45] LABS: Bacteria Urine Automated 1+ (Negative)
[2018-07-16] MEDS ORDERED: ONDANSETRON INJ 2 MG/ML 2 ML VIAL IV PRN (14:08)
[2018-07-16] MEDS ORDERED: ALBUTEROL HFA 8 GM INHALER INH PRN (14:08)
[2018-07-16] MEDS ORDERED: PHARMACIST DISCHARGE MED REC CONSULT PRN (14:08)
[2018-07-16] MEDS ORDERED: NITROGLYCERIN SL 0.4 MG/TAB TAB SL PRN (14:08)
[2018-07-16] MEDS ORDERED: ACETAMINOPHEN 325 MG TAB PO PRN (14:08)
[2018-07-16] MEDS ORDERED: LACTATED RINGER'S 1,000 ML IV SCH (14:08)
[2018-07-16] MEDS ORDERED: ALUMINUM/MAGNESIUM SUSP 30 ML UDC PO PRN (14:08)
[2018-07-16] MEDS ORDERED: POLYETHYLENE (MIRALAX) 17 GM PACK PO PRN (14:08)
[2018-07-16] MEDS ORDERED: MAGNESIUM HYDROXIDE SUSP 30 ML UDC PO PRN (14:08)
[2018-07-16] MEDS: DOCUSATE SODIUM/SENNA 50/8.6MG TAB PO SCH (15:38)
[2018-07-16] MEDS: cefTRIAXone SODIUM 1,000 MG in DEXTROSE 5% 50 ML IV SCH (15:38)
[2018-07-16] MEDS: PANTOprazole 40 MG TAB PO SCH (16:14)
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
[2018-07-16] MEDS ORDERED: METOPROLOL TARTRATE 1 MG/ML VIAL IV PRN (19:04)
[2018-07-16] MEDS: METOPROLOL TARTRATE 50 MG TAB PO SCH (19:29)
[2018-07-16] MEDS ORDERED: Heparin Adult LOW DOSE Wt-Based Dextrose 5% 25,000 units/500 mL IV SCH (19:45)
--- NOTE | 2018-07-16 19:47 | Hospitalist Progress Note ---
Date of Service July 16, 2018 Subjective Attending addendum: Patient found to be in rapid A. fib RVR heart rate in 1929 Patient evaluated at bedside, very hard of hearing, does not appear to be distress, denies of shortness of palpitation P.o. Lopressor 50 mg ordered stat, scheduled for 9 PM today Patient is continued with scheduled metoprolol 50 mg twice daily Order for IV Lopressor 5 mg every 6 hours as needed for heart rate more than 100 2D echocardiogram report noted, patient found to be in rapid A. fib with EF of 60 to 65% Discussed with neurology and cardiology, patient remains in high risk for thromboembolic event for rapid A. fib Order for low dose IV heparin without any bolus Monitor neurochecks closely, With any change in neuro stroke scale, IV heparin will be held, patient will need a stat CT head noncontrast for evaluation of hemorrhage Cardiology consult requested Discussed with patient's daughter YudithTree given Risk and benefit of IV heparin treatment explained, daughter is agreeable for anticoagulation treatment for stroke prevention Daughter request a call from the nursing, or on-call physician with any change in patient's status Mercy Mcdaniel MD Results & Data Vital Signs (Past 12 Hours) Vital Signs Temp Pulse Pulse Resp BP BP Pulse Ox 07/16/18 19:33 36.7 C 128 H 18 142/94 H 94 07/16/18 15:24 36.4 C L 60 19 130/77 94 07/16/18 14:08 36.8 C 98 H 22 153/97 H 94 07/16/18 13:55 104 H 26 H 94 07/16/18 13:49 102 H 25 H 139/89 95 07/16/18 13:30 112 H 24 148/99 H 95 07/16/18 13:01 121 H 20 144/99 H 95 07/16/18 13:00 121 H 25 H 144/99 H 95 07/16/18 12:30 102 H 27 H 137/83 94 07/16/18 12:01 115 H 25 H 123/93 94 07/16/18 12:00 120 H 26 H 123/93 93 07/16/18 11:30 103 H 24 121/79 95 07/16/18 11:01 101 H 31 H 119/82 95 07/16/18 10:30 106 H 26 H 119/87 94 07/16/18 10:00 113 H 27 H 128/85 96 07/16/18 09:55 119 H 117 H 21 128/85 98 07/16/18 09:38 36.9 C 80 22 103/75 100
[2018-07-16] MEDS ORDERED: Heparin IV Low Dose *NO* Bolus IV SCH (20:00)
[2018-07-16 20:03] LABS: INR 1.1 (0.9-1.1); Prothrombin Time 11.2 Seconds (9.0-12.0)
[2018-07-16] MEDS: ASPIRIN 81 MG ECTAB PO SCH (20:18)
[2018-07-16] MEDS: LORazepam 1 MG TAB PO SCH (20:18)
[2018-07-16] MEDS: risperiDONE 0.5 MG TABLET PO SCH (20:18)
[2018-07-16] MEDS ORDERED: METOPROLOL TARTRATE 50 MG TAB PO SCH (21:00)
[2018-07-16] MEDS ORDERED: HALOPERIDOL LACTATE 5 MG/ML 1 ML VIAL IM STA (23:31)
[2018-07-16] MEDS ORDERED: HALOPERIDOL LACTATE 5 MG/ML 1 ML VIAL ONE (23:34)
[2018-07-17] MEDS ORDERED: HALOPERIDOL LACTATE 5 MG/ML 1 ML VIAL IM STA ×3 (00:34→20:15)
[2018-07-17 02:36] LABS: Basophils # (auto) 0.04 K/uL (0-0.2); Basophils % (auto) 0.5 %; Eosinophils # (auto) 0.05 K/uL (0-0.5); Eosinophils % (auto) 0.6 %; Hematocrit (blood only) 36.9 % (37-47); Immature Granulocytes # (auto) 0.01 K/uL (0.00-0.02); Immature Granulocytes % (auto) 0.1 %; Lymphocytes # (auto) 2.18 K/uL (1.2-3.4); Lymphocytes % (auto) 26.9 %; Mean Corpuscular Hgb Conc 35.2 g/dL (32-36); Mean Corpuscular Volume 92.9 fL (80-100); Mean Platelet Volume 9.9 fL (7.4-10.4); Monocytes # (auto) 0.67 K/uL (0.11-0.59); Monocytes % (auto) 8.3 %; Neutrophils # (auto) 5.14 K/uL (1.4-6.5); Neutrophils % (auto) 63.6 %; Platelet Count 213 K/uL (130-400); RDW Coefficient of Variation 12.9 % (11.5-14.5); RDW Standard Deviation 44.3 fL (36.4-46.3); Red Blood Count 3.97 M/uL (4.2-5.4); White Blood Count 8.09 K/uL (4.8-10.8)
[2018-07-17 02:59] LABS: Partial Thromboplastin Ratio 1.8; Partial Thromboplastin Time 49.3 Seconds (21.0-31.0)
[2018-07-17 03:17] LABS: BUN Creatinine Ratio 10.9 (10-20); Calcium 8.6 mg/dl (8.5-10.1); Creatinine Clr Calc Pharmacy 27.4 ml/min; Est GFR (African American) 51.5; Est GFR (Non-African American) 44.5; Potassium 3.2 mmol/L (3.5-5.1); Troponin I 0.052 ng/ml (0-0.045)
[2018-07-17] MEDS ORDERED: HALOPERIDOL LACTATE 5 MG/ML 1 ML VIAL ONE ×3 (03:23→20:16)
[2018-07-17 05:56] LABS: Estimated Average Glucose 111 mg/dl
[2018-07-17] MEDS: LORazepam 1 MG TAB PO SCH ×2 (05:57→21:28)
[2018-07-17] MEDS: LEVOTHYROXINE SODIUM 75 MCG TABLET PO SCH (05:57)
--- NOTE | 2018-07-17 08:13 | CT Scan Report ---
CT head/brain wo con CLINICAL HISTORY: 88 years-old Female presenting with follow up from 07/16 scan. TECHNIQUE: Multidetector CT imaging of the head was performed without the use of intravenous contrast . IV contrast: None. One or more dose lowering techniques were used consistent with the principles of ALARA (as low as reasonably achievable), including automatic exposure control, mA or kV adjustment t o individual patient size, and/or use of iterative reconstruction. COMPARISON: 07/16/2018. CT DOSE (mGy.cm): The estimated cumulative dose is 537.48 mGy.cm. FINDINGS: Data Processing Auditor topogram: Unremarkable. Proportional ventricular and sulcal prominence, likely age-related parenchymal volume loss. Persisten t extra-axial hyperdensity within the sulci of the parafalcine right occipital lobe most consistent w ith subarachnoid hemorrhage. This has not increased or significantly changed from most recent prior. Periventricular and subcortical white matter hypoattenuation, nonspecific but likely indicative of ch ronic small vessel ischemic change. No acute territorial infarct. No mass effect or midline shift. Pa ranasal sinuses and mastoid air cells clear. Calvarium intact. IMPRESSION: 1. Stable appearance of the trace subarachnoid hemorrhage along the parafalcine right occipital lobe . This location would be less typical for hemorrhagic contusion. 2. Chronic small vessel ischemic change. Electronically signed by: Dima Landaverde M.D. 07/17/2018 8:12 AM
--- NOTE | 2018-07-17 09:02 | Ultrasound Report ---
US carotid doppler BI HISTORY: Mental status change cva w/u COMPARISON: None. TECHNIQUE: Real-time, grayscale, and color Doppler sonography of the carotid arteries was performed. Imaging reviewed in the transverse and longitudinal planes. All measurements were calculated based on NASCET criteria. FINDINGS: Antegrade flow is seen in the bilateral vertebral arteries. The brachial pressures are hemodynamically similar. Considerable plaque formation bilaterally The peak systolic velocity within the right ICA is 98. The right systolic ratio is 2.7. The peak systolic velocity within the left ICA is 69. The left systolic ratio is 2.0. IMPRESSION: 1. Considerable plaque formation bilaterally. 2. No evidence for significant or high-grade stenosis. The above report was generated using voice recognition software. It may contain grammatical, syntax or spelling errors. Electronically signed by: Carlo Whittington M.D. 07/17/2018 9:01 AM
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
[2018-07-17] MEDS: METOPROLOL TARTRATE 50 MG TAB PO SCH ×2 (09:21→21:28)
[2018-07-17] MEDS: risperiDONE 0.5 MG TABLET PO SCH ×2 (09:21→21:28)
[2018-07-17] MEDS: ASPIRIN 81 MG ECTAB PO SCH ×2 (09:22→21:28)
[2018-07-17] MEDS: CHOLECALCIFEROL 1,000 UNITS TAB PO SCH (09:22)
[2018-07-17] MEDS: DOCUSATE SODIUM/SENNA 50/8.6MG TAB PO SCH (09:22)
[2018-07-17] MEDS: CITALOPRAM 20 MG TAB PO SCH (09:22)
[2018-07-17] MEDS: CYANOCOBALAMIN 500 MCG TABLET (VITAMIN B-12) PO SCH (09:22)
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
--- NOTE | 2018-07-17 10:30 | Consultation Report ---
DATE OF CONSULTATION: 07/17/2018 INPATIENT CARDIOLOGY CONSULTATION CONSULTATION REQUESTED BY: Dr. Mcdaniel. REASON FOR CONSULTATION: Atrial fibrillation. HISTORY OF PRESENT ILLNESS: Mrs. Monroe is a very pleasant, yet very hard of hearing, 88-year-old woman who presented to [facility] on 07/16/2018 with a complaint of weakness. She was found to be significantly volume depleted and admitted for hydration. She was also found to be in atrial fibrillation with rapid ventricular response and she was admitted to telemetry and she was started on heparin. Currently, the patient states that she feels fine. She is very hard of hearing and refuses to wear hearing aids. Her daughter helped with the examination, speaking to the patient and the patient currently denies any chest pain, shortness of breath, palpitations, lightheadedness, dizziness, or syncope. Her rates have improved with IV fluids and she is currently showing episodes of sinus rhythm with the rates now in the 60s and 70s. PAST SURGICAL HISTORY: 1. Total abdominal hysterectomy. 2. Dual chamber permanent pacemaker placement, most recently 2012. 3. Upper endoscopy. MEDICAL ILLNESSES: 1. Symptomatic atrial tachycardia. 2. Paroxysmal atrial fibrillation, deemed no longer an anticoagulation candidate secondary to multiple falls. 3. Tachybrady syndrome with pacemaker placement and subsequent extraction due to pocket infection with reimplantation in 2012. 4. Mechanical fall resulting in aortic hematoma and hemithorax requiring chest tube. 5. Hypertension. 6. Hyperlipidemia. 7. Hard of hearing. 8. Alzheimer's. FAMILY HISTORY: Noncontributory. SOCIAL HISTORY: Denies any alcohol, tobacco or recreational drug use. REVIEW OF SYSTEMS: As per HPI, all other review of systems is reviewed and negative at this time. ALLERGIES: LISINOPRIL, VERAPAMIL, BACTRIM, HYDROCHLOROTHIAZIDE, SULFA. MEDICATIONS AN OUTPATIENT: 1. Aspirin 81 mg daily. 2. Losartan 100 mg daily. 3. Amlodipine 2.5 mg daily. 4. Metoprolol tartrate 50 mg b.i.d. 5. Celexa. 6. Prilosec. 7. Levoxyl. 8. Risperdal. PHYSICAL EXAMINATION: VITALS: Temperature 36.7, pulse 62, respiratory rate 12, blood pressure 122/77. GENERAL: Awake, alert, oriented x3, very hard of hearing. No acute distress. HEENT: Normocephalic, atraumatic. Pupils equal, round, reactive to light and accommodation. Extraocular muscles intact. Anicteric sclerae. Moist mucous membranes. NECK: No JVD, no bruit. CARDIOVASCULAR: Irregularly irregular and I do not appreciate any murmurs, rubs or gallops. PULMONARY: Clear to auscultation bilaterally. No rales, rhonchi, or wheezing. ABDOMEN: Bowel sounds x4, soft. No rebound, guarding, tenderness. No organomegaly. EXTREMITIES: No clubbing, cyanosis or edema. +2 pedal pulses bilaterally. SKIN: Warm and dry. TEST RESULTS: A 12-lead EKG performed in the Emergency Department independently reviewed at this time shows atrial fibrillation with rapid ventricular response. A 12-lead EKG performed 07/10/2018 independently reviewed at this time shows atrially paced rhythm. Device interrogation reveals an appropriately functioning device. A 2D echocardiogram showed normal LV chamber size, moderate concentric LVH, normal LV systolic function, EF 60-65% without wall motion abnormality. Moderate left atrial enlargement, mild aortic valve sclerosis without stenosis, [id number] mitral regurgitation. IMPRESSION: 1. Atrial fibrillation in the setting of volume depletion. 2. Volume depletion. 3. Acute kidney injury secondary to #2. 4. Hyponatremia. 5. History of multiple mechanical falls with resultant trauma, deemed no longer an anticoagulation candidate. 6. Alzheimer's. 7. Hard of hearing. 8. Tachybrady syndrome, status post permanent pacemaker placement. RECOMMENDATIONS: It was my pleasure to see Mrs. Monroe in consultation today. From a cardiac standpoint, no further cardiac testing or intervention is necessary at this time. I do not believe anticoagulation is appropriate in this patient and her heparin will be stopped immediately. Obviously, she is not a long-term anticoagulation candidate either. It appears that she is trending towards sinus rhythm at this point. We will continue on her outpatient metoprolol and she should be treated her other underlying issues. It is okay to discontinue telemetry from a cardiac standpoint.
[2018-07-17] MEDS ORDERED: QUETIAPINE FUMARATE 25 MG TABLET PO PRN ×2 (11:49→11:52)
[2018-07-17] MEDS: POTASSIUM CHLORIDE PWD 20 MEQ PACK PO ONE ×2 (12:04→12:07)
[2018-07-17] MEDS: LORazepam 0.5 MG TAB PO SCH (12:04)
[2018-07-17] MEDS: PANTOprazole 40 MG TAB PO SCH (12:04)
[2018-07-17] MEDS ORDERED: POTASSIUM CHLORIDE 20 MEQ TABCR PO STA (12:08)
--- NOTE | 2018-07-17 12:30 | Hospitalist Progress Note ---
Date of Service July 17, 2018 Assessment & Plan (1) PAF (paroxysmal atrial fibrillation): Developed paroxysmal A. fib, possible in the setting of dehydration, UTI Patient is continued with Lopressor 50 mg twice daily Remains rate controlled, Not a candidate for anticoagulation due to history of recurrent fall, with bleeding complication: Intracranial hemorrhage, Appreciate input from cardiology No further cardiac work-up needed, echocardiogram shows normal EF, no wall motion abnormality Okay to transfer to medical floor (2) UTI (urinary tract infection): Urine culture: Ecoli 07/02/2018, was treated with p.o. Keflex, Presents with positive UA Dehydration, acute renal failure Empiric antibiotic with IV Rocephin, sensitive as per prior urine culture Repeat urine culture ordered on 07/16/2018, will follow report, normal patient has normal white count, denies of any symptoms,no evidence of sepsis (3) Acute worsening of stage 3 chronic kidney disease: Secondary to dehydration, poor p.o. intake, UTI creatinine improved to baseline with IV fluids, Continue monitor PRP, avoid NSAIDs, contrast studies Losartan kept on hold Appreciate input from nephrology (4) 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 (5) History of permanent cardiac pacemaker placement: (6) Dementia with behavioral disturbance: At baseline dementia, patient is pleasant, oriented to person, Has a severe hearing disturbance which also complicates patient's orientation During admission yesterday in ER, patient was very pleasant, cooperative Developed agitation, confusion, combativeness overnight, on Risperdal scheduled dose twice daily, which is continued Possible metabolic encephalopathy secondary in the setting of dehydration, UTI, cardiac arrhythmia, hospital admission Ordered for Haldol x1 PRN p.o. Seroquel Will be transferred to medical floor, limit intrusion, Observe for fall precaution, bed /chair alarm ordered (7) Generalized weakness: Secondary to dehydration, UTI PT OT evaluation requested observe fall precaution (8) Abnormal CT of the head: CT head noncontrast 07/17/18 IMPRESSION: 1. Stable appearance of the trace subarachnoid hemorrhage along the parafalcine right occipital lobe. This location would be less typical for hemorrhagic contusion. 2. Chronic small vessel ischemic change. Unchanged from prior CT head yesterday 07/16/2018 No recent history of fall, or head trauma Head intracranial bleed in 2016 status post fall, patient was in [place] under neurosurgery No evidence of acute CVA, patient is continued with aspirin 81 mg daily Patient is not a candidate for chronic anticoagulation In the setting of paroxysmal A. fib: Secondary to recurrent fall risk, bleeding complication (9) Hyponatremia: Secondary poor p.o. intake, dehydration in setting of UTI IV fluid ordered with normal saline, sodium gradually improved, nephrology following, follow PRP (10) Metabolic encephalopathy: Developed effect yesterday, secondary to dehydration on infection UTI, cardiac arrhythmia, acute illness with hospitalist admission Baseline advanced dementia, patient is also very hard Of hearing, refuses hearing aid at baseline One-to-one observation for high fall risk, self-harm, continue to provide reassurance, Fall precaution CODE STATUS: DNR/DNI DVT prophylaxis: SCD and teds Disposition: Lives at home with daughter, at baseline independent in ADLs PT OT evaluation requested Daughter voiced concern about returning home: Patient is very deconditioned, off from her baseline Family want to consider short-term rehab social service consulted Subjective Patient remains in rate controlled A. fib, No complaint of chest pain, no shortness of breath, afebrile and Developed a confusion agitation last night, was given 1 dose of IV Haldol This morning patient continues to try to climb out of bed, not following instruction, agitated, Very confused, as per family members Patient seen at bedside,, more confused, agitated/off from her baseline as per my observation based on yesterday Patient constantly changing position, requesting to get out of hospital, wants to go "home, reassurance provided,Patient will be discharged home as soon as possible, multiple family members present at bedside, Discussed with cardiology, as heart rate status remained stable, okay to transfer to medical floor, which may allow patient to settle down Get scheduled dose of risperidone 0.5 mg twice daily, ordered for Seroquel 12.5 mg every 8 hours as needed, monitor QTC: QTC today 489, follow magnesium, potassium closely, repeat EKG in a.m. plan of care discussed with cardiology patient Physical Exam Constitutional: WD/WN, vitals as above Agitated/confused Very hard of hearing Eyes: PERRL, conjunctivae normal, anicteric sclerae ENMT: external ear and nose normal, oropharynx normal Neck: trachea midline, no thyromegaly Respiratory: normal respiratory effort, lungs clear to auscultation Gastrointestinal (Abdomen): normal bowel sounds, soft, nontender, no hepatosplenomegaly Musculoskeletal: no cyanosis or clubbing, extremities motor strength 5/5 Skin: no rashes, warm and dry Neurologic: PERRL, EOMI, accommodation nl, no face palsy, no dysarthria Agitated, confused, oriented to person only Psychiatric: Affect: + anxious affect Judgement: + poor judgement Confusion/agitation, suggestive of delirium Results & Data Vital Signs (Past 12 Hours) Vital Signs Temp Pulse Pulse Resp BP Pulse Ox 07/17/18 12:02 36.7 C 72 16 152/73 H 93 07/17/18 11:00 93 07/17/18 07:16 36.7 C 62 16 122/78 07/17/18 06:47 142 H 07/17/18 02:35 36.3 C L 83 18 138/79 93 (1) UTI (urinary tract infection) Hematuria presence: without hematuria Urinary tract infection type: acute cystitis Qualified Code(s): N30.00 - Acute cystitis without hematuria (2) Dementia with behavioral disturbance Alzheimer's disease onset: unspecified onset Dementia type: Alzheimer's disease Qualified Code(s): G30.9 - Alzheimer's disease, unspecified; F02.81 - Dementia in other diseases classified elsewhere with behavioral disturbance
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
[2018-07-17] MEDS: cefTRIAXone SODIUM 1,000 MG in DEXTROSE 5% 50 ML IV SCH (16:18)
[2018-07-17 16:38] LABS: BUN Creatinine Ratio 10.8 (10-20); Creatinine Clr Calc Pharmacy 23.8 ml/min; Est GFR (African American) 43.3; Est GFR (Non-African American) 37.4; Potassium 3.8 mmol/L (3.5-5.1)
[2018-07-17] MEDS ORDERED: METOPROLOL TARTRATE 1 MG/ML VIAL IV STA (21:33)
[2018-07-18] MEDS ORDERED: HALOPERIDOL LACTATE 5 MG/ML 1 ML VIAL IM STA (05:30)
[2018-07-18] MEDS: LEVOTHYROXINE SODIUM 75 MCG TABLET PO SCH (06:08)
[2018-07-18] MEDS: LORazepam 1 MG TAB PO SCH ×2 (06:09→21:05)
[2018-07-18] MEDS ORDERED: OLANZapine 10 MG/2.1 ML SDV IM STA (07:10)
[2018-07-18 07:56] LABS: BUN Creatinine Ratio 12.4 (10-20); Calcium 8.8 mg/dl (8.5-10.1); Creatinine Clr Calc Pharmacy 27.4 ml/min; Est GFR (African American) 51.5; Est GFR (Non-African American) 44.5; Potassium 4.4 mmol/L (3.5-5.1)
[2018-07-18] MEDS: risperiDONE 0.5 MG TABLET PO SCH ×2 (08:58→21:04)
[2018-07-18] MEDS: METOPROLOL TARTRATE 50 MG TAB PO SCH ×2 (08:58→21:04)
[2018-07-18] MEDS: PANTOprazole 40 MG TAB PO SCH (09:34)
[2018-07-18] MEDS: ASPIRIN 81 MG ECTAB PO SCH ×2 (09:34→21:05)
[2018-07-18] MEDS: DOCUSATE SODIUM/SENNA 50/8.6MG TAB PO SCH (09:34)
[2018-07-18] MEDS: CITALOPRAM 20 MG TAB PO SCH (09:34)
[2018-07-18] MEDS: MAGNESIUM OXIDE 400 MG TAB PO SCH (09:34)
[2018-07-18] MEDS: CYANOCOBALAMIN 500 MCG TABLET (VITAMIN B-12) PO SCH (09:34)
[2018-07-18] MEDS: CHOLECALCIFEROL 1,000 UNITS TAB PO SCH (09:34)
[2018-07-18] MEDS: LORazepam 0.5 MG TAB PO SCH (12:02)
--- NOTE | 2018-07-18 12:15 | Cardiology Progress Note ---
Date of Service July 18, 2018 Assessment & Plan (1) PAF (paroxysmal atrial fibrillation): successfully converted to sinus obviously,not an anticoagulation candidate cont metoprolol ok to d/c tele or to home from cardiac standpoint (2) Generalized weakness: (3) History of tachycardia-bradycardia syndrome: Subjective Pt seen and examined with daughter at bedside. Pt is much more confused today. No complaints reported. Has been physical with staff at times. Tele reviewed: sinus rhythm converting from afib last pm Review of Systems Review of Systems: All systems reviewed & are unremarkable except as noted in HPI & below Physical Exam Physical Exam: General: Awake, alert and oriented x 3. No acute distress. HEENT: Normocephalic, atraumatic. Pupils equal, round and reactive to light and accommodation. Extraocular muscles are intact. Anicteric sclera. Moist mucous membranes. Neck: No JVD. No bruit. Cardiovascular: Regular. Positive S-4. Normal S-1 and S-2. No S-3. 3/6 holosystolic ejection murmur, left sternal border, mid-clavicular line with radiation to the axilla. No rubs. Pulmonary: Clear to auscultation bilaterally. No rales, rhonchi, or wheezing. Abdomen: Bowel sounds x 4, soft. No rebound, guarding or tenderness. No organomegaly. Extremities: No clubbing, cyanosis or edema. +2 pedal pulses bilaterally. Skin: Warm and dry. Results & Data Vital Signs (Past 12 Hours) Vital Signs Temp Pulse Resp BP Pulse Ox 07/18/18 11:11 36.7 C 85 18 160/92 H 94 07/18/18 07:10 36.7 C 65 18 164/71 H 95 07/18/18 05:00 180/86 H 07/18/18 04:00 37.1 C 84 22 91
[2018-07-18] MEDS: cefTRIAXone SODIUM 1,000 MG in DEXTROSE 5% 50 ML IV SCH (15:34)
--- NOTE | 2018-07-18 17:44 | Hospitalist Progress Note ---
Date of Service July 18, 2018 Assessment & Plan (1) PAF (paroxysmal atrial fibrillation): Developed paroxysmal A. fib, possible in the setting of dehydration, UTI Patient is continued with Lopressor 50 mg twice daily Remains rate controlled, Not a candidate for anticoagulation due to history of recurrent fall, with bleeding complication: Intracranial hemorrhage, Appreciate input from cardiology No further cardiac work-up needed, echocardiogram shows normal EF, no wall motion abnormality Okay to transfer to medical floor (2) UTI (urinary tract infection): Urine culture: Ecoli 07/02/2018, was treated with p.o. Keflex, Presents with positive UA Dehydration, acute renal failure Empiric antibiotic with IV Rocephin, sensitive as per prior urine culture Repeat urine culture ordered on 07/16/2018, will follow report, normal patient has normal white count, denies of any symptoms,no evidence of sepsis (3) Acute worsening of stage 3 chronic kidney disease: cr improved with IV fluids Secondary to dehydration, poor p.o. intake, UTI Continue monitor PRP, avoid NSAIDs, contrast studies Losartan kept on hold, will be resumed as renal function improves to baseline Appreciate input from nephrology (4) 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 (5) History of permanent cardiac pacemaker placement: Recent pacemaker interrogation 07/03 (6) Dementia with behavioral disturbance: At baseline dementia, patient is pleasant, oriented to person, Has a severe hearing disturbance which also complicates patient's orientation During admission yesterday in ER, patient was very pleasant, cooperative Developed agitation, confusion, combativeness overnight, on Risperdal scheduled dose twice daily, which is continued Possible metabolic encephalopathy secondary in the setting of dehydration, UTI, cardiac arrhythmia, hospital admission haldol /seroquel D/graciela for prolong Qtc cont home dose of resperidal Will be transferred to medical floor, limit intrusion, Observe for fall precaution, bed /chair alarm ordered (7) Generalized weakness: Secondary to dehydration, UTI PT OT evaluation requested observe fall precaution (8) Abnormal CT of the head: CT head noncontrast 07/17/18 IMPRESSION: 1. Stable appearance of the trace subarachnoid hemorrhage along the parafalcine right occipital lobe. This location would be less typical for hemorrhagic contusion. 2. Chronic small vessel ischemic change. Unchanged from prior CT head yesterday 07/16/2018 No recent history of fall, or head trauma Head intracranial bleed in 2016 status post fall, patient was in [place] under neurosurgery No evidence of acute CVA, patient is continued with aspirin 81 mg daily Patient is not a candidate for chronic anticoagulation In the setting of paroxysmal A. fib: Secondary to recurrent fall risk, bleeding complication (9) Hyponatremia: Secondary poor p.o. intake, dehydration in setting of UTI Na improved with IV hydration nephrology following, follow PRP (10) Metabolic encephalopathy: Developed effect yesterday, secondary to dehydration on infection UTI, cardiac arrhythmia, acute illness with hospitalist admission Baseline advanced dementia, patient is also very hard Of hearing, refuses hearing aid at baseline One-to-one observation for high fall risk, self-harm, continue to provide reassurance, Fall precaution CODE STATUS: DNR/DNI DVT prophylaxis: SCD and teds Disposition: Lives at home with daughter, at baseline independent in ADLs PT OT evaluation requested Daughter voiced concern about returning home: Patient is very deconditioned, off from her baseline Family want to consider short-term rehab social service consulted Subjective Pt seen and examined with daughter at bedside. Pt is much more confused today. getting agitated given dose of Haldol earlier D/graciela as Qtc noted to be > 500 sinus with rate controlled heart rate will D/c tele as the cardiac monitors are making her more agitated . Physical Exam Constitutional: WD/WN, vitals as above Eyes: PERRL, conjunctivae normal, anicteric sclerae ENMT: external ear and nose normal, oropharynx normal Neck: trachea midline, no thyromegaly Respiratory: normal respiratory effort, lungs clear to auscultation Gastrointestinal (Abdomen): normal bowel sounds, soft, nontender, no hepatosplenomegaly Musculoskeletal: no cyanosis or clubbing, extremities motor strength 5/5 Skin: no rashes, warm and dry Neurologic: PERRL, EOMI, accommodation nl, no face palsy, no dysarthria Psychiatric: Affect: + anxious affect Judgement: + poor judgement Results & Data Vital Signs (Past 12 Hours) Vital Signs Temp Pulse Resp BP Pulse Ox 07/18/18 14:57 36.8 C 61 16 125/64 95 07/18/18 11:11 36.7 C 85 18 160/92 H 94 07/18/18 07:10 36.7 C 65 18 164/71 H 95 (1) UTI (urinary tract infection) Hematuria presence: without hematuria Urinary tract infection type: acute cystitis Qualified Code(s): N30.00 - Acute cystitis without hematuria (2) Dementia with behavioral disturbance Alzheimer's disease onset: unspecified onset Dementia type: Alzheimer's disease Qualified Code(s): G30.9 - Alzheimer's disease, unspecified; F02.81 - Dementia in other diseases classified elsewhere with behavioral disturbance
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
[2018-07-19] MEDS: LEVOTHYROXINE SODIUM 75 MCG TABLET PO SCH (06:21)
[2018-07-19 08:10] LABS: Creatinine Clr Calc Pharmacy 30.2 ml/min; Est GFR (African American) 57.8; Est GFR (Non-African American) 49.9; Potassium 3.6 mmol/L (3.5-5.1)
[2018-07-19] MEDS: PANTOprazole 40 MG TAB PO SCH (08:28)
[2018-07-19] MEDS: risperiDONE 0.5 MG TABLET PO SCH ×2 (08:28→20:50)
[2018-07-19] MEDS: CHOLECALCIFEROL 1,000 UNITS TAB PO SCH (08:28)
[2018-07-19] MEDS: ASPIRIN 81 MG ECTAB PO SCH ×2 (08:29→20:42)
[2018-07-19] MEDS: DOCUSATE SODIUM/SENNA 50/8.6MG TAB PO SCH (08:29)
[2018-07-19] MEDS: METOPROLOL TARTRATE 50 MG TAB PO SCH ×2 (08:29→20:41)
[2018-07-19] MEDS: MAGNESIUM OXIDE 400 MG TAB PO SCH (08:29)
[2018-07-19] MEDS: CYANOCOBALAMIN 500 MCG TABLET (VITAMIN B-12) PO SCH (08:29)
[2018-07-19] MEDS: LORazepam 1 MG TAB PO SCH ×3 (08:32→20:41)
--- NOTE | 2018-07-19 14:32 | Hospitalist Progress Note ---
Date of Service July 19, 2018 Assessment & Plan (1) PAF (paroxysmal atrial fibrillation): Developed paroxysmal A. fib, possible in the setting of dehydration, UTI Remains rate controlled -Continue with lopressor 50 mg PO BID -Not a candidate for anticoagulation due to history of recurrent fall, with bleeding complication: Intracranial hemorrhage -Appreciate input from cardiology -No further cardiac work-up needed, echocardiogram shows normal EF, no wall motion abnormality -Off tele metry as increased agitation (2) UTI (urinary tract infection): Urine culture: Ecoli 07/02/2018, was treated with p.o. Keflex -Empiric antibiotic with IV Rocephin, sensitive as per prior urine culture -Repeat urine culture ordered on 07/16/2018--> contaminant, corynebacterium -Discontinue IV Rocephin today (3) Acute worsening of stage 3 chronic kidney disease: Secondary to dehydration, poor p.o. intake, UTI Creatinine 1.27 on presentation, now resolved -IV Fluids -Continue to monitor PRP, avoid NSAIDs, contrast studies -Ok to restart Losartan as creatinine near baseline now -Appreciate nephrology inputs (4) 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 (5) History of permanent cardiac pacemaker placement: Recent pacemaker interrogation 07/03 (6) Dementia with behavioral disturbance: -At baseline dementia, patient is pleasant, oriented to person -Has a severe hearing disturbance which also complicates patient's orientation -Overnight patient developed - Developed agitation, confusion, combativeness , on Risperdal scheduled dose twice daily, which is continued--> Likely Delirium in setting of dementia -Haldol/Seroquel held due to prolonged QTC which has now improved to 473 -Continued on home dose risperdal BID -Off 1:1 sitter and doing well no episodes of agitation any more (7) Generalized weakness: Secondary to dehydration, UTI -PT OT evaluation requested (8) Abnormal CT of the head: CT head noncontrast 07/17/18 IMPRESSION: 1. Stable appearance of the trace subarachnoid hemorrhage along the parafalcine right occipital lobe. This location would be less typical for hemorrhagic contusion. 2. Chronic small vessel ischemic change. Unchanged from prior CT head 07/16/2018 No recent history of fall, or head trauma Head intracranial bleed in 2016 status post fall, patient was in [place] under neurosurgery No evidence of acute CVA, patient is continued with aspirin 81 mg daily Patient is not a candidate for chronic anticoagulation In the setting of paroxysmal A. fib: Secondary to recurrent fall risk, bleeding complication (9) Hyponatremia: Secondary poor p.o. intake, dehydration in setting of UTI Na improved with IV hydration -Resolved DISPOSITION Off 1:1 observation Okay to discharge from medical point of view, awaiting placement Subjective Pt seen and examined with daughter in law at bedside. Patient is doing much better today- calmer with no episodes of agitation. Did have good PO intake as well No agitation Off 1:1 sitter Physical Exam Physical Exam: Constitutional: WD/WN, vitals as above Eyes: PERRL, conjunctivae normal, anicteric sclerae ENMT: external ear and nose normal, oropharynx normal Neck: trachea midline, no thyromegaly Respiratory: normal respiratory effort, lungs clear to auscultation Gastrointestinal (Abdomen): normal bowel sounds, soft, nontender, no hepatosplenomegaly Musculoskeletal: no cyanosis or clubbing, extremities motor strength 5/5 Skin: no rashes, warm and dry Neurologic: PERRL, EOMI, accommodation nl, no face palsy, no dysarthria Psychiatric: Affect: + anxious affect Judgement: + poor judgement Results & Data Vital Signs (Past 12 Hours) Vital Signs Temp Pulse Resp BP Pulse Ox 07/19/18 07:27 36.6 C 65 18 162/76 H 97 (1) UTI (urinary tract infection) Urinary tract infection type: acute cystitis Hematuria presence: without hematuria Qualified Code(s): N30.00 - Acute cystitis without hematuria (2) Dementia with behavioral disturbance Dementia type: Alzheimer's disease Alzheimer's disease onset: unspecified onset Qualified Code(s): G30.9 - Alzheimer's disease, unspecified; F02.81 - Dementia in other diseases classified elsewhere with behavioral disturbance
[2018-07-20] MEDS: LEVOTHYROXINE SODIUM 75 MCG TABLET PO SCH (06:19)
[2018-07-20 07:27] LABS: Basophils # (auto) 0.03 K/uL (0-0.2); Basophils % (auto) 0.3 %; Eosinophils # (auto) 0.11 K/uL (0-0.5); Eosinophils % (auto) 1.1 %; Hematocrit (blood only) 36.3 % (37-47); Immature Granulocytes # (auto) 0.03 K/uL (0.00-0.02); Immature Granulocytes % (auto) 0.3 %; Lymphocytes # (auto) 2.31 K/uL (1.2-3.4); Lymphocytes % (auto) 22.8 %; Mean Corpuscular Hgb Conc 35.8 g/dL (32-36); Mean Corpuscular Volume 92.1 fL (80-100); Mean Platelet Volume 10.1 fL (7.4-10.4); Monocytes # (auto) 0.81 K/uL (0.11-0.59); Neutrophils # (auto) 6.85 K/uL (1.4-6.5); Neutrophils % (auto) 67.5 %; Platelet Count 245 K/uL (130-400); Red Blood Count 3.94 M/uL (4.2-5.4); White Blood Count 10.14 K/uL (4.8-10.8)
[2018-07-20 08:01] LABS: BUN Creatinine Ratio 15.6 (10-20); Calcium 9.2 mg/dl (8.5-10.1); Creatinine Clr Calc Pharmacy 31.8 ml/min; Est GFR (African American) 61.5; Est GFR (Non-African American) 53.1; Potassium 3.5 mmol/L (3.5-5.1)
[2018-07-20] MEDS: PANTOprazole 40 MG TAB PO SCH (09:09)
[2018-07-20] MEDS: MAGNESIUM OXIDE 400 MG TAB PO SCH (09:09)
[2018-07-20] MEDS: CYANOCOBALAMIN 500 MCG TABLET (VITAMIN B-12) PO SCH (09:09)
[2018-07-20] MEDS: METOPROLOL TARTRATE 50 MG TAB PO SCH ×2 (09:09→19:59)
[2018-07-20] MEDS: risperiDONE 0.5 MG TABLET PO SCH ×2 (09:09→19:58)
[2018-07-20] MEDS: CHOLECALCIFEROL 1,000 UNITS TAB PO SCH (09:09)
[2018-07-20] MEDS: ASPIRIN 81 MG ECTAB PO SCH ×2 (09:09→19:59)
[2018-07-20] MEDS: LORazepam 1 MG TAB PO SCH ×3 (09:09→19:58)
[2018-07-20] MEDS: DOCUSATE SODIUM/SENNA 50/8.6MG TAB PO SCH (09:11)
--- NOTE | 2018-07-20 11:28 | Hospitalist Progress Note ---
Date of Service July 20, 2018 Assessment & Plan (1) PAF (paroxysmal atrial fibrillation): Developed paroxysmal A. fib, possible in the setting of dehydration, UTI Remains rate controlled -Continue with Lopressor 50 mg PO BID -Not a candidate for anticoagulation due to history of recurrent fall, with bleeding complication: Intracranial hemorrhage -Appreciate input from cardiology -No further cardiac work-up needed, echocardiogram shows normal EF, no wall motion abnormality -Off tele metry as increased agitation (2) UTI (urinary tract infection): Urine culture: Ecoli 07/02/2018, was treated with PO Keflex -Empiric antibiotic with IV Rocephin, sensitive as per prior urine culture -Repeat urine culture ordered on 07/16/2018--> contaminant, corynebacterium -Discontinue IV Rocephin today (3) Acute worsening of stage 3 chronic kidney disease: Secondary to dehydration, poor p.o. 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 (5) History of permanent cardiac pacemaker placement: Recent pacemaker interrogation 07/03 (6) Hypertension: Uncontrolled Restart Losartan 100 mg daily which is a home medication -Continue with metoprolol tartrate 50 mg twice daily -Monitor BP (7) Dementia with behavioral disturbance: -At baseline dementia, patient is pleasant, oriented to person -Has a severe hearing disturbance which also complicates patient's orientation -Overnight patient developed - Developed agitation, confusion, combativeness , on Risperdal scheduled dose twice daily, which is continued--> Likely Delirium in setting of dementia -Haldol/Seroquel held due to prolonged QTC which has now improved to 473 -Continued on home dose risperdal BID -Off 1:1 sitter and doing well no episodes of agitation any more (8) Generalized weakness: Secondary to dehydration, UTI -PT OT evaluation requested (9) Abnormal CT of the head: CT head noncontrast 07/17/18 IMPRESSION: 1. Stable appearance of the trace subarachnoid hemorrhage along the parafalcine right occipital lobe. This location would be less typical for hemorrhagic contusion. 2. Chronic small vessel ischemic change. Unchanged from prior CT head 07/16/2018 No recent history of fall, or head trauma Head intracranial bleed in 2016 status post fall, patient was in [place] under neurosurgery No evidence of acute CVA, patient is continued with aspirin 81 mg daily Patient is not a candidate for chronic anticoagulation In the setting of paroxysmal A. fib: Secondary to recurrent fall risk, bleeding complication (10) Hyponatremia: Secondary poor p.o. intake, dehydration in setting of UTI Na improved with IV hydration -Resolved DISPOSITION Off 1:1 observation for more than 24 hours Okay to discharge from medical point of view, awaiting placement Subjective Pt seen and examined with sister by bedside Patient is doing much better today- calmer with no episodes of agitation. Did have good PO intake as well No agitation Off 1:1 sitter for more than 24 hours Physical Exam Physical Exam: Constitutional: WD/WN, vitals as above Eyes: PERRL, conjunctivae normal, anicteric sclerae ENMT: external ear and nose normal, oropharynx normal Neck: trachea midline, no thyromegaly Respiratory: normal respiratory effort, lungs clear to auscultation Gastrointestinal (Abdomen): normal bowel sounds, soft, nontender, no hepatosplenomegaly Musculoskeletal: no cyanosis or clubbing, extremities motor strength 5/5 Skin: no rashes, warm and dry Neurologic: PERRL, EOMI, accommodation nl, no face palsy, no dysarthria Psychiatric: Affect: + anxious affect Judgement: + poor judgement Results & Data Vital Signs (Past 12 Hours) Vital Signs Temp Pulse Resp BP Pulse Ox 07/20/18 07:35 36.4 C L 66 18 181/94 H 95 07/19/18 23:44 36.6 C 60 18 129/55 L 93 (1) UTI (urinary tract infection) Urinary tract infection type: acute cystitis Hematuria presence: without hematuria Qualified Code(s): N30.00 - Acute cystitis without hematuria (2) Dementia with behavioral disturbance Dementia type: Alzheimer's disease Alzheimer's disease onset: unspecified onset Qualified Code(s): G30.9 - Alzheimer's disease, unspecified; F02.81 - Dementia in other diseases classified elsewhere with behavioral disturbance
[2018-07-20] MEDS: LOSARTAN POTASSIUM 50 MG TAB PO SCH (13:13)
[2018-07-21] MEDS: LEVOTHYROXINE SODIUM 75 MCG TABLET PO SCH (06:41)
[2018-07-21] MEDS: risperiDONE 0.5 MG TABLET PO SCH ×2 (08:07→21:31)
[2018-07-21] MEDS: LORazepam 1 MG TAB PO SCH ×3 (08:07→21:34)
[2018-07-21] MEDS: MAGNESIUM OXIDE 400 MG TAB PO SCH (08:08)
[2018-07-21] MEDS: LOSARTAN POTASSIUM 50 MG TAB PO SCH (08:08)
[2018-07-21] MEDS: CHOLECALCIFEROL 1,000 UNITS TAB PO SCH (08:08)
[2018-07-21] MEDS: ASPIRIN 81 MG ECTAB PO SCH ×2 (08:08→21:32)
[2018-07-21] MEDS: PANTOprazole 40 MG TAB PO SCH (08:08)
[2018-07-21] MEDS: METOPROLOL TARTRATE 50 MG TAB PO SCH ×2 (08:08→21:31)
[2018-07-21] MEDS: CYANOCOBALAMIN 500 MCG TABLET (VITAMIN B-12) PO SCH (08:08)
[2018-07-21] MEDS: DOCUSATE SODIUM/SENNA 50/8.6MG TAB PO SCH (08:09)
--- NOTE | 2018-07-21 10:30 | Hospitalist Progress Note ---
Date of Service July 21, 2018 Assessment & Plan (1) PAF (paroxysmal atrial fibrillation): Developed paroxysmal A. fib, possible in the setting of dehydration, UTI Remains rate controlled -Continue with Lopressor 50 mg PO BID -Not a candidate for anticoagulation due to history of recurrent fall, with bleeding complication: Intracranial hemorrhage -Appreciate input from cardiology -No further cardiac work-up needed, echocardiogram shows normal EF, no wall motion abnormality -Off tele metry as increased agitation (2) UTI (urinary tract infection): Urine culture: Ecoli 07/02/2018, was treated with PO Keflex -Empiric antibiotic with IV Rocephin, sensitive as per prior urine culture -Repeat urine culture ordered on 07/16/2018--> contaminant, corynebacterium -Discontinued IV Rocephin (3) Acute worsening of stage 3 chronic kidney disease: Secondary to dehydration, poor p.o. 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 (5) History of permanent cardiac pacemaker placement: Recent pacemaker interrogation 07/03 (6) Hypertension: Uncontrolled Restarted Losartan 100 mg daily which is a home medication -Continue with metoprolol tartrate 50 mg twice daily -Monitor BP (7) Dementia with behavioral disturbance: -At baseline dementia, patient is pleasant, oriented to person -Has a severe hearing disturbance which also complicates patient's orientation -Overnight patient developed 07/18- Developed agitation, confusion, combativeness , on Risperdal scheduled dose twice daily, which is continued--> Likely Delirium in setting of dementia -Haldol/Seroquel held due to prolonged QTC which has now improved to 473 -Continued on home dose risperdal BID -Off 1:1 sitter and doing well no episodes of agitation any more (8) Generalized weakness: Secondary to dehydration, UTI -PT OT evaluation requested (9) Abnormal CT of the head: CT head noncontrast 07/17/18 IMPRESSION: 1. Stable appearance of the trace subarachnoid hemorrhage along the parafalcine right occipital lobe. This location would be less typical for hemorrhagic contusion. 2. Chronic small vessel ischemic change. Unchanged from prior CT head 07/16/2018 No recent history of fall, or head trauma Head intracranial bleed in 2016 status post fall, patient was in [place] under neurosurgery No evidence of acute CVA, patient is continued with aspirin 81 mg daily Patient is not a candidate for chronic anticoagulation In the setting of paroxysmal A. fib: Secondary to recurrent fall risk, bleeding complication (10) Hyponatremia: Secondary poor p.o. intake, dehydration in setting of UTI Na improved with IV hydration -Resolved DISPOSITION Off 1:1 observation for more than 24 hours Okay to discharge from medical point of view, awaiting placement- BED available on Tuesday Subjective Pt seen and examined with sister by bedside Patient is doing much better today- calmer with no episodes of agitation. Did have good PO intake as well No agitation Off 1:1 sitter for more than 24 hours Physical Exam Physical Exam: Constitutional: WD/WN, vitals as above Respiratory: normal respiratory effort, lungs clear to auscultation Gastrointestinal (Abdomen): normal bowel sounds, soft, nontender, no hepatosplenomegaly Musculoskeletal: no cyanosis or clubbing, extremities motor strength 5/5 Skin: no rashes, warm and dry Psychiatric: Affect: + anxious affect Judgement: + poor judgement Results & Data Vital Signs (Past 12 Hours) Vital Signs Temp Pulse Resp BP BP Pulse Ox 07/21/18 07:23 36.9 C 70 18 177/93 H 184/82 H 95 07/20/18 22:48 36.5 C 66 18 169/78 H (1) UTI (urinary tract infection) Urinary tract infection type: acute cystitis Hematuria presence: without hematuria Qualified Code(s): N30.00 - Acute cystitis without hematuria (2) Dementia with behavioral disturbance Dementia type: Alzheimer's disease Alzheimer's disease onset: unspecified onset Qualified Code(s): G30.9 - Alzheimer's disease, unspecified; F02.81 - Dementia in other diseases classified elsewhere with behavioral disturbance
[2018-07-22] MEDS: LEVOTHYROXINE SODIUM 75 MCG TABLET PO SCH ×2 (06:16→06:20)
[2018-07-22] MEDS: risperiDONE 0.5 MG TABLET PO SCH ×2 (08:25→21:15)
[2018-07-22] MEDS: MAGNESIUM OXIDE 400 MG TAB PO SCH (08:25)
[2018-07-22] MEDS: LORazepam 1 MG TAB PO SCH ×3 (08:25→21:18)
[2018-07-22] MEDS: METOPROLOL TARTRATE 50 MG TAB PO SCH ×2 (08:25→21:16)
[2018-07-22] MEDS: ASPIRIN 81 MG ECTAB PO SCH ×2 (08:25→21:15)
[2018-07-22] MEDS: PANTOprazole 40 MG TAB PO SCH (08:26)
[2018-07-22] MEDS: CHOLECALCIFEROL 1,000 UNITS TAB PO SCH (08:26)
[2018-07-22] MEDS: CYANOCOBALAMIN 500 MCG TABLET (VITAMIN B-12) PO SCH (08:26)
[2018-07-22] MEDS: LOSARTAN POTASSIUM 50 MG TAB PO SCH ×2 (08:26→10:04)
[2018-07-22] MEDS: DOCUSATE SODIUM/SENNA 50/8.6MG TAB PO SCH (08:33)
[2018-07-22] MEDS ORDERED: SODIUM CHLORIDE 0.9% 500 ML IV ONE (11:28)
[2018-07-22] MEDS ORDERED: SODIUM CHLORIDE 0.9% 1000ML 1,000 ML IV SCH (11:30)
[2018-07-22] MEDS ORDERED: SODIUM CHLORIDE 0.9% 1000ML 500 ML IV ONE (12:02)
[2018-07-22 12:35] LABS: Basophils # (auto) 0.03 K/uL (0-0.2); Basophils % (auto) 0.4 %; Eosinophils # (auto) 0.02 K/uL (0-0.5); Eosinophils % (auto) 0.2 %; Hematocrit (blood only) 37.9 % (37-47); Hemoglobin 13.7 g/dL (12.0-16.0); Immature Granulocytes # (auto) 0.02 K/uL (0.00-0.02); Immature Granulocytes % (auto) 0.2 %; Lymphocytes # (auto) 1.53 K/uL (1.2-3.4); Lymphocytes % (auto) 18.3 %; Mean Corpuscular Hgb Conc 36.1 g/dL (32-36); Mean Corpuscular Volume 92.2 fL (80-100); Mean Platelet Volume 10.5 fL (7.4-10.4); Monocytes # (auto) 0.91 K/uL (0.11-0.59); Monocytes % (auto) 10.9 %; Neutrophils # (auto) 5.87 K/uL (1.4-6.5); Platelet Count 260 K/uL (130-400); RDW Coefficient of Variation 13.3 % (11.5-14.5); RDW Standard Deviation 44.9 fL (36.4-46.3); Red Blood Count 4.11 M/uL (4.2-5.4); White Blood Count 8.38 K/uL (4.8-10.8)
[2018-07-22 12:53] LABS: BUN Creatinine Ratio 11.9 (10-20); Calcium 9.4 mg/dl (8.5-10.1); Creatinine Clr Calc Pharmacy 18.4 ml/min; Est GFR (African American) 31.8; Est GFR (Non-African American) 27.4
--- NOTE | 2018-07-22 13:30 | Hospitalist Progress Note ---
Date of Service July 22, 2018 Assessment & Plan (1) Hypotension: Had an episode of hypotension with BP dropping to 90s today. Baseline: Running high in 170-180s till yesterday -Unclear etiology . But does have minimal PO intake. -Responded to IVF bolus x 2 - 1 L total. On IVF at 80 cc/hour -Blood work ordered- Creatinine 1.64, K 3.0. No signs of infection -Hold losartan. Continue with coreg with holding parameters -Monitor closely. Look for s/s of infection (2) Acute worsening of stage 3 chronic kidney disease: Secondary to dehydration, poor p.o. intake. Creatinine 1.27 on presentation, resolved and now again up to 1.64 -IV Fluids discontinued--> Restarted with IVNS boluses x 2 with maintenance fluids -Hold losartan once again due to creatinine going up (3) Hypokalemia: Replete Monitor K, Mg (4) PAF (paroxysmal atrial fibrillation): Developed paroxysmal A. fib, possible in the setting of dehydration, UTI Remains rate controlled -Continue with Lopressor 50 mg PO BID -Not a candidate for anticoagulation due to history of recurrent fall, with bleeding complication: Intracranial hemorrhage -Appreciate input from cardiology -No further cardiac work-up needed, echocardiogram shows normal EF, no wall motion abnormality -Off tele metry as increased agitation (5) UTI (urinary tract infection): Urine culture: Ecoli 07/02/2018, was treated with PO Keflex -Empiric antibiotic with IV Rocephin, sensitive as per prior urine culture -Repeat urine culture ordered on 07/16/2018--> contaminant, corynebacterium -Discontinued IV Rocephin (6) 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 (7) History of permanent cardiac pacemaker placement: Recent pacemaker interrogation 07/03 (8) Hypertension: Baseline- Running high in 170-180s range -Now hypotensive -Continue with metoprolol tartrate 50 mg twice daily with holding parameters -Hold losartan -Monitor BP (9) Dementia with behavioral disturbance: -At baseline dementia, patient is pleasant, oriented to person -Has a severe hearing disturbance which also complicates patient's orientation -Overnight patient developed 07/18- Developed agitation, confusion, combativeness , on Risperdal scheduled dose twice daily, which is continued--> Likely Delirium in setting of dementia -Haldol/Seroquel held due to prolonged QTC which has now improved to 473 -Continued on home dose risperdal BID -Off 1:1 sitter and doing well no episodes of agitation any more (10) Generalized weakness: Secondary to dehydration, UTI -PT OT evaluation requested (11) Abnormal CT of the head: CT head noncontrast 07/17/18 IMPRESSION: 1. Stable appearance of the trace subarachnoid hemorrhage along the parafalcine right occipital lobe. This location would be less typical for hemorrhagic contusion. 2. Chronic small vessel ischemic change. Unchanged from prior CT head 07/16/2018 No recent history of fall, or head trauma Head intracranial bleed in 2016 status post fall, patient was in [place] under neurosurgery No evidence of acute CVA, patient is continued with aspirin 81 mg daily Patient is not a candidate for chronic anticoagulation In the setting of paroxysmal A. fib: Secondary to recurrent fall risk, bleeding complication (12) Hyponatremia: Secondary poor p.o. intake, dehydration in setting of UTI Na improved with IV hydration -Resolved DISPOSITION Off 1:1 observation for more than 48 hours Monitor closely Called daughter in law - unable to reach out Subjective Pt was very lethargic today. BP dropped to 90s- was in 170-180s yesterday with no new changes in medications. Unable to get more history so difficult to access for symptoms. Received IV NS bolus 500 cc x 2 - doing better. More awake, alert. Grossly no localized weakness No new symptoms noted by RN Does not have good PO intake Physical Exam Physical Exam: Constitutional: WD/WN, vitals as above Respiratory: normal respiratory effort, lungs clear to auscultation Gastrointestinal (Abdomen): normal bowel sounds, soft, nontender, no hepatosplenomegaly Musculoskeletal: no cyanosis or clubbing, extremities motor strength 5/5 Skin: no rashes, warm and dry Neurologic: No dysarthria, No focal neurological deficits grossly. Not too cooperative Psychiatric: Affect: + anxious affect Judgement: + poor judgement Results & Data Vital Signs (Past 12 Hours) Vital Signs Temp Pulse Pulse Pulse Resp BP Pulse Ox 07/22/18 12:27 58 L 115/72 07/22/18 12:07 60 95/60 L 07/22/18 11:58 60 97/62 L 07/22/18 10:03 68 137/83 07/22/18 08:21 103 H 103/68 07/22/18 07:36 36.6 C 125 H 20 116/82 94 (1) UTI (urinary tract infection) Urinary tract infection type: acute cystitis Hematuria presence: without hematuria Qualified Code(s): N30.00 - Acute cystitis without hematuria (2) Dementia with behavioral disturbance Dementia type: Alzheimer's disease Alzheimer's disease onset: unspecified onset Qualified Code(s): G30.9 - Alzheimer's disease, unspecified; F02.81 - Dementia in other diseases classified elsewhere with behavioral disturbance
[2018-07-22] MEDS ORDERED: POTASSIUM CHLORIDE 20 MEQ/15 ML UDC PO STA (13:40)
[2018-07-22] MEDS: NSS + 20MEQ KCL 20 MEQ/1,000 ML BAG IV SCH (13:50)
[2018-07-22] MEDS ORDERED: POTASSIUM CHLORIDE 10 MEQ TABCR PO STA (14:57)
[2018-07-23] MEDS: NSS + 20MEQ KCL 20 MEQ/1,000 ML BAG IV SCH (02:29)
[2018-07-23] MEDS: LEVOTHYROXINE SODIUM 75 MCG TABLET PO SCH (06:42)
[2018-07-23 07:11] LABS: Hematocrit (blood only) 37.8 % (37-47); Hemoglobin 13.2 g/dL (12.0-16.0); Mean Corpuscular Hgb Conc 34.9 g/dL (32-36); Mean Corpuscular Volume 92.9 fL (80-100); Mean Platelet Volume 10.5 fL (7.4-10.4); Platelet Count 248 K/uL (130-400); RDW Coefficient of Variation 13.6 % (11.5-14.5); RDW Standard Deviation 46.1 fL (36.4-46.3); Red Blood Count 4.07 M/uL (4.2-5.4)
[2018-07-23 07:43] LABS: BUN Creatinine Ratio 15.7 (10-20); Calcium 8.8 mg/dl (8.5-10.1); Creatinine Clr Calc Pharmacy 26.9 ml/min; Est GFR (African American) 50.4; Est GFR (Non-African American) 43.5; Potassium 3.8 mmol/L (3.5-5.1)
--- NOTE | 2018-07-23 12:22 | Discharge Summary ---
Date of Service July 23, 2018 Admission HPI Per Admitting Provider This is a 88-year-old female who is extremely hard of hearing who has a significant PMH of PAF off warfarin secondary to falls, history of TBS s/p ppm, HTN, HLD, CKD stage III, hypothyroidism, dementia, anxiety, osteoporosis who presents to [facility] secondary to weakness off and on x1 week. Of significance patient was evaluated by outpatient cardiology BRAIN [facility] on 07/03 for routine cardiology follow-up. At that visit she was noted to be slightly hypotensive therefore her amlodipine was discontinued. She then was seen in PCP office on 07/06 secondary to abdominal pain and nausea. 2 weeks prior to this appointment she was treated for UTI but culture returned negative. Lastly she was seen in [facility] ED on 07/10 secondary to weakness. At that time she was diagnosed with UTI and initially placed on ciprofloxacin which was transitioned to Keflex after cultures returned. She also had a CT scan of abdomen at that visit which revealed significant rectal impaction. She has only taken 2 to 3 days of Keflex per family. She presents back to [facility] today secondary to questionable syncopal episode, weakness. Patient and family are not great historians. Patient was able to get up this morning and do ADLs and ambulate with walker. This is her baseline. She sat down and ate minimal breakfast. When she got up from breakfast table she called for assistance and family led her to couch. At that time patient states she, "blacked out." Son-in-law states she laid down on couch, eyes were closed and he felt her chest was going up and down very fast. Patient does not recall events prior to or shortly after the episode. Family denies seizure-like activity, loss of bowel or bladder. Up until this past week she denies any recent illness. During this past week she has had transient episodes of weakness in which she has required to assist for ambulating. She has also had very poor appetite for past week. Denies any fever, chills, sweats, lightheadedness, dizziness, chest pain, shortness of breath, hemoptysis, cough, abdominal pain, dysuria, hematuria, increased urgency or frequency with urination. She has had off-and-on nausea in which she has been taking Zofran for along with constipation. She did move her bowels yesterday but was very minimal and she states "I need more than just Ex-Lax." She denies prior history of stroke. She currently lives with her daughter and son-in-law. At baseline she ambulance with cane/walker and is independent of ADLs. She is a non-smoker nondrinker. Principal Diagnosis 1. ERLIN on CKD III 2. Hypotensive episode secondary to hypovolemia 3. Hypokalemia 4. Delirium in setting of advanced dementia 5. Hospice care SECONDARY DIAGNOSIS ON DISCHARGE 1. Paroxysmal Atrial fibrillation 2. Hx of tachy isiah syndrome- pacemaker in situ 3. HTN 4. Generalized weakness Discharge Exam Constitutional: WD/WN, vitals as above Respiratory: normal respiratory effort, lungs clear to auscultation Gastrointestinal (Abdomen): normal bowel sounds, soft, nontender, no hepatosplenomegaly Musculoskeletal: no cyanosis or clubbing, extremities motor strength 5/5 Skin: no rashes, warm and dry Neurologic: No dysarthria, No focal neurological deficits grossly. Not too cooperative Psychiatric: Affect: + anxious affect Judgement: + poor judgement Discharge Data Allergies Allergy/AdvReac Type Severity Reaction Status Date / Time Bactrim Allergy Mild HIVES Unverified 03/17/17 13:54 sulfamethoxazole Allergy Mild HIVES Unverified 07/16/18 10:52 trimethoprim Allergy Mild HIVES Unverified 07/16/18 10:52 hydrochlorothiazide Allergy Unknown UNKNOWN Unverified 07/16/18 10:52 lisinopril Allergy Unknown UNKNOWN RXN Verified 07/16/18 10:52 verapamil Allergy Unknown UNKNOWN RXN Verified 07/16/18 10:52 Consultations 07/16/18 11:52 ED Decision to Admit Stat 07/16/18 12:44 Consult Neurology Routine 07/16/18 14:08 Consult Case Management - Discharge Planning Routine Consult Case Management - Discharge Planning Routine Consult Nephrology Routine 07/16/18 19:06 Consult Cardiology Routine Ordered Studies 07/16/18 10:10 CT head/brain wo con Stat 07/17/18 US carotid doppler BI Routine 07/17/18 08:00 CT head/brain wo con Routine Hospital Course (1) Acute worsening of stage 3 chronic kidney disease: Secondary to dehydration, poor p.o. intake. Creatinine 1.27 on presentation, resolved and again went up to 6.4, now down to 1.12 -IV Fluids discontinued--> Restarted and now will discontinue again. -Okay to restart losartan as creatinine has stabilized (2) Hypokalemia: Resolved (3) Hospice care: Had a detailed discussion with the family on 07/22/2018 about palliative care given advanced dementia, recurrent admissions for volume depletion due to inadequate p.o. intake. Would want to take her home on hospice -POLST form was filled on 04/24/18- Daughter (POA)- DNR/DNI, Comfort measures on ly and did not want to be admitted to the hospital unless it is for comfort, okay with antibiotics, no artificial hydration. -Hospice set up by [facility] (4) PAF (paroxysmal atrial fibrillation): Developed paroxysmal A. fib, possible in the setting of dehydration, UTI Remains rate controlled -Continue with Lopressor 50 mg PO BID -Not a candidate for anticoagulation due to history of recurrent fall, with bleeding complication: Intracranial hemorrhage -Appreciate input from cardiology -No further cardiac work-up needed, echocardiogram shows normal EF, no wall motion abnormality (5) UTI (urinary tract infection): Urine culture: Ecoli 07/02/2018, was treated with PO Keflex -Empiric antibiotic with IV Rocephin, sensitive as per prior urine culture -Repeat urine culture ordered on 07/16/2018--> contaminant, corynebacterium -Discontinued IV Rocephin (6) 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 (7) History of permanent cardiac pacemaker placement: Recent pacemaker interrogation 07/03 (8) Hypertension: Baseline- Running high in 170-180s range -Now hypotensive -Continue with metoprolol tartrate 50 mg twice daily with holding parameters -Hold losartan -Monitor BP (9) Dementia with behavioral disturbance: -At baseline dementia, patient is pleasant, oriented to person -Has a severe hearing disturbance which also complicates patient's orientation -Overnight patient developed 07/18- Developed agitation, confusion, combativeness , on Risperdal scheduled dose twice daily, which is continued--> Likely Delirium in setting of dementia -Haldol/Seroquel held due to prolonged QTC which has now improved to 473. -Continued on home dose risperdal BID -Off 1:1 sitter and doing well no episodes of agitation any more (10) Generalized weakness: Secondary to dehydration, UTI -PT OT evaluation done (11) Abnormal CT of the head: CT head noncontrast 07/17/18 IMPRESSION: 1. Stable appearance of the trace subarachnoid hemorrhage along the parafalcine right occipital lobe. This location would be less typical for hemorrhagic contusion. 2. Chronic small vessel ischemic change. Unchanged from prior CT head 07/16/2018 No recent history of fall, or head trauma Head intracranial bleed in 2016 status post fall, patient was in [place] under neurosurgery No evidence of acute CVA, patient is continued with aspirin 81 mg daily Patient is not a candidate for chronic anticoagulation In the setting of paroxysmal A. fib: Secondary to recurrent fall risk, bleeding complication (12) Hyponatremia: Secondary poor p.o. intake, dehydration in setting of UTI Na improved with IV hydration -Resolved DISPOSITION Ok to discharge home on hospice Total Time Total Time Spent Total Time Spent (In Minutes): 35 minutes Discharge Plan Discharge Items Patient Disposition: Hospice - Home Reason For Visit: WEAKNESS/CONFUSION Discharge Diagnosis: Acute kidney injury secondary to volume depletion due to poor intake Advanced dementia Hospice care Discharge Goals: Decrease discomfort Activity: Resume your previous activity Activity Comment: As tolerated Non-emergency contact: Primary Care Provider Call non-emergency contact if: your symptoms worsen Follow-up/Referrals: Devante Gant, [Primary Care Provider] - (Follow up with Hospice team ) Diet: Regular Addtl Provider Instructions: MEDICATION CHANGES: New medication- Ativan 1 mg PO BID as needed for anxiety HOSPICE CARE Prescriptions: New lorazepam [Ativan] 1 mg tablet 1 mg PO BID PRN (Reason: agitation) Qty: 14 RF: 0 Continued citalopram 10 mg tablet 10 mg PO DAILY RF: 0 risperidone 0.25 mg tablet 0.25 mg PO BID RF: 0 potassium chloride [Klor-Con 10] 10 mEq tablet extended release 10 meq PO DAILY RF: 0 levothyroxine 75 mcg tablet 75 mcg PO QAM RF: 0 metoprolol tartrate 50 mg tablet 50 mg PO BID RF: 0 omeprazole 20 mg capsule,delayed release(DR/EC) 20 mg PO QAM RF: 0 albuterol sulfate 90 mcg/actuation HFA aerosol inhaler 2 puff inhalation QID PRN (Reason: Shortness Of Breath) RF: 0 cyanocobalamin (vitamin B-12) [Vitamin B-12] 1,000 mcg Tablet 1,000 mcg PO DAILY RF: 0 cholecalciferol (vitamin D3) [Vitamin D3] 1,000 unit Capsule 1,000 unit PO DAILY RF: 0 ondansetron HCl 4 mg tablet 4 mg PO Q6H PRN (Reason: Nausea) RF: 0 losartan 100 mg Tablet 100 mg PO DAILY RF: 0 Discontinued lorazepam 1 mg tablet 1 mg PO UD RF: 0 Stand-Alone Forms: [facility] Discharge Orders: Discharge Order (Routine); Ordered 07/23/18 Ordered By: Bety Escalera Admission Data Admit Date/Time: 07/16/18 12:23 Attending Provider: Bety Escalera Admit Provider: Mercy Mcdaniel Primary Care Provider: Devante Gant Other Providers: Mercy Mcdaniel ; Dionne Castorena ; Oscar Brown ; Dionne Guerra ; Umang Mehta ; Jerry Kirkland ; La Andrade. ; Lorenzo Saenz ; Slade Rivera ; Johann Jackson ; Connor Mckeon ; Miguel Ángel Chase ; Carlo Ivy ; Mckayla Hdez ; Dionne Noland Service: Medical
[2018-07-23] MEDS: LORazepam 1 MG TAB PO SCH (13:07)
[2018-07-23] MEDS: DOCUSATE SODIUM/SENNA 50/8.6MG TAB PO SCH (13:07)
[2018-07-23] MEDS: ASPIRIN 81 MG ECTAB PO SCH (13:07)
[2018-07-23] MEDS: PANTOprazole 40 MG TAB PO SCH (13:08)
[2018-07-23] MEDS: METOPROLOL TARTRATE 50 MG TAB PO SCH (13:08)
[2018-07-23] MEDS: MAGNESIUM OXIDE 400 MG TAB PO SCH (13:08)
[2018-07-23] MEDS: CYANOCOBALAMIN 500 MCG TABLET (VITAMIN B-12) PO SCH (13:09)
[2018-07-23] MEDS: CHOLECALCIFEROL 1,000 UNITS TAB PO SCH (13:09)
[2018-07-23] MEDS: risperiDONE 0.5 MG TABLET PO SCH (13:09)
== END 2018-07-23 14:57 | disposition hospice, home (50) | DRG 682 ==
LOC: ED 09:35 → SUATTDRO 12:23 → 2S 12:23 → 4E 07-18 17:36